=== PATIENT | female | born 1960 | race Two or more races ===

== ENCOUNTER 2017-02-06 17:01 | Emergency (ER) | payer MEDICAID, OTHER ==
[~2017-02-06] VITALS: Ht 165.1 cm; Wt 110.2 kg
[~2017-02-06 17:01] MED LIST: ASPIRIN EC81 MG PO; CIPRO500 MG PO; CLOPIDOGREL75 MG PO; FERROUS SULFAT325 MG ORAL; FERROUS SULFAT325 MG PO; GEMFIBROZIL600 MG ORAL; GLUCOPHAGE500 MG PO; IBUPROFEN600 MG ORAL; IBUPROFEN800 MG PO; LISINOPRIL-HCT1 EAC2 ORAL; METFORMIN HCL850 M1 ORAL; MYLANTA II30 ML GT; NITROFURANTOIN100 M2 ORAL; OMEPRAZOLE20 M3 ORAL; RANITIDINE HCL150 MG PO; ZESTRIL20 MG PO
[2017-02-06 17:35] VITALS: BP 150/88
[2017-02-06] MEDS ORDERED: TYLENOL EXTRA500 MG ORAL (17:44)
[2017-02-06] MEDS ORDERED: GABAPENTIN300 MG ORAL (17:44)
[2017-02-06 17:46] VITALS: BP 150/88
--- NOTE | 2017-02-06 20:42 | Emergency Room Report ---
History of Present Illness General Chief Complaint: Upper Extremity Injury Source: Medical Record Present Illness HPI The patient is a 56-year-old female with a history of diabetes and hypertension presenting for right neck pain and bilateral hand pain which began 2 months prior. Patient states this pain usually begins at night. The patient denies any prior injury to this area. Pain is described as an 8/10 dull ache and is localized to the R neck and bilateral 3rd-5th fingers. Pain does not radiate. The patient has not tried any pain medications. Pt denies other symptoms including N, V, F, MATHEW, CP, SOB, numbness/tingling Allergies: Coded Allergies: No Known Allergies (Unverified , 08/21/12) Patient History Past Medical History: see triage record, DM, HTN Pertinent Family History: none Reviewed Nursing Documentation: PMH: Agreed, PSxH: Agreed Nursing Documentation-PMH Hx Cardiac Problems: Yes Hx Hypertension: Yes Hx Asthma: No Hx Diabetes: Yes Hx Gastrointestinal Problems: Yes - Gall stones Review of Systems All Other Systems: negative except mentioned in HPI Physical Exam Vital Signs Date Time Temp Pulse Resp B/P Pulse Ox O2 Delivery O2 Flow Rate FiO2 02/06/17 17:15 98.2 93 16 150/88 97 Room Air Sp02 EP Interpretation: reviewed, normal General Appearance: no apparent distress, alert, GCS 15, non-toxic, obese Head: normocephalic, atraumatic Eyes: bilateral eye PERRL, bilateral eye normal inspection ENT: hearing grossly normal, normal pharynx, no angioedema, normal voice Neck: full range of motion, no bony tend, supple/symm/no masses, tender lateral - R side Respiratory: chest non-tender, lungs clear, normal breath sounds, no wheezing, speaking full sentences Cardiovascular #1: regular rate, rhythm, no edema Musculoskeletal: back normal, gait/station normal, normal range of motion Neurologic: alert, oriented x3, responsive, motor strength/tone normal, sensory intact, normal gait, speech normal Psychiatric: judgement/insight normal, memory normal, mood/affect normal, no suicidal/homicidal ideation Skin: normal color, no rash, warm/dry, well hydrated Lymphatic: no adenopathy Medical Decision Making PA Attestation Dr. Pichardo is my supervising physician. Patient management was discussed with my supervising physician Diagnostic Impression: Primary Impression: Arthritis Additional Impression: Neuropathy ER Course The patient is a 56-year-old female with a history of diabetes and hypertension presenting for right neck pain and bilateral hand pain which began 2 months prior Ddx considered include but not limited to sprain/strain, fracture, contusion, neuropathy PE: vitals WNL. NAD There is sinus to palpation over the right cervical paraspinous muscle. No midline tenderness. Full active range of motion. Upper ext: 5/5 strength. SILT. No discoloration. Skin warm and dry. Normal gait. No imaging is needed at this time. Pt is given gabapentin and tylenol and will be DC'ed home with ER precautions. Pt needs to FU with PMD. Last Vital Signs Date Time Temp Pulse Resp B/P Pulse Ox O2 Delivery O2 Flow Rate FiO2 02/06/17 17:49 98.3 02/06/17 17:46 16 150/88 97 Room Air 02/06/17 17:15 93 Status: improved Disposition: HOME, SELF-CARE Condition: Improved Scripts Gabapentin* (GABAPENTIN*) 300 Mg Capsule 300 MG ORAL THREE TIMES A DAY, #60 CAP 0 Refills Prov: SONU SKAGGS 02/06/17 Acetaminophen* (TYLENOL EXTRA STRENGTH*) 500 Mg Tablet 500 MG ORAL Q8H Y for Prn Headache/Temp > 101, #30 TAB 0 Refills Prov: SONU SKAGGS 02/06/17 Referrals: NON PHYSICIAN (PCP) Patient Instructions: Peripheral Neuropathy, Arthritis Additional Instructions: I discussed my findings with the patient. All questions and concerns have been answered. Treatment and medication compliance have been addressed. I advised the patient that they need to follow up with PMD in 3-5 days. Return to ED if symptoms worsen, new symptoms arise, or if needed for any reason. Patient verbalized understanding of discharge instructions. SONU SKAGGS Feb 06, 2017 20:42
== END 2017-02-06 18:00 | disposition home or self-care (01) ==
LOC: EMR 17:55
DX: M19.90 Unspecified osteoarthritis, unspecified site (principal); G62.9 Polyneuropathy, unspecified; I10 Essential (primary) hypertension; E11.9 Type 2 diabetes mellitus without complications
CPT/HCPCS: 99284

== ENCOUNTER 2017-03-23 10:21 | Emergency (ER) | payer MEDICAID ==
[~2017-03-23] VITALS: Ht 165.1 cm; Wt 115.7 kg
[~2017-03-23 10:21] MED LIST changes: +GABAPENTIN300 MG ORAL; +TYLENOL EXTRA500 MG ORAL
[2017-03-23 10:30] VITALS: BP 155/78
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
[2017-03-23] MEDS ORDERED: Tylenol #3 tab (300mg/30mg) ORAL ONE (10:45)
[2017-03-23] MEDS ORDERED: Ketorolac 60mg Inj IM ONE (10:45)
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
[2017-03-23] MEDS ORDERED: ROBAXIN-750750 MG PO (11:57)
[2017-03-23] MEDS ORDERED: TYLENOL325 MG ORAL (11:57)
[2017-03-23 12:12] VITALS: BP 117/84
== END 2017-03-23 12:16 | disposition home or self-care (01) ==
LOC: EMR 10:55
DX: S30.1XXA Contusion of abdominal wall, initial encounter (principal); V49.40XA Driver injured in collision with unspecified motor vehicles in traffic accident, initial encounter; Y92.410 Unspecified street and highway as the place of occurrence of the external cause; R51 Headache; I10 Essential (primary) hypertension; E11.9 Type 2 diabetes mellitus without complications
CPT/HCPCS: 70450; 71010; 96372; 99284

== ENCOUNTER 2018-08-07 10:44 | Emergency (ER) | payer MEDICAID ==
[~2018-08-07] VITALS: Ht 157.5 cm; Wt 112.0 kg
[~2018-08-07 10:44] MED LIST changes: +CEPHALEXIN500 MG ORAL; +ROBAXIN-750750 MG PO; +TYLENOL325 MG ORAL
[2018-08-07 10:55] VITALS: BP 156/78
[2018-08-07 11:21] LABS: BASOPHILS % (AUTO) 1.2 % (0.0-2.0); EOSINOPHILS % (AUTO) 1.2 % (0.0-3.0); HEMATOCRIT 44.7 % (37.0-47.0); LYMPHOCYTES % (AUTO) 26.8 % (20.0-45.0); MEAN CORPUSCULAR VOLUME 86 FL (80-99); MONOCYTES % (AUTO) 6.1 % (1.0-10.0); NEUTROPHILS % (AUTO) 64.7 % (45.0-75.0); PLATELET COUNT 180 K/UL (150-450); RED BLOOD COUNT 5.19 M/UL (4.20-5.40); RED CELL DISTRIBUTION WIDTH 11.4 % (11.6-14.8); WHITE BLOOD COUNT 8.5 K/UL (4.8-10.8)
[2018-08-07 11:22] LABS: APPEARANCE,URINE CLOUDY; BILIRUBIN, URINE 1+ (NEGATIVE); GLUCOSE, URINE (UA) NEGATIVE (NEGATIVE); KETONES,URINE 1+ (NEGATIVE); LEUKOCYTE ESTERASE ,URINE 3+ (NEGATIVE); NITRITE,URINE NEGATIVE (NEGATIVE); PH,URINE 6.5 (4.5-8.0); PROTEIN,URINE 2+ (NEGATIVE); UROBILINOGEN,URINE 4 MG/DL (0.0-1.0)
[2018-08-07 11:23] LABS: COLOR,URINE YELLOW
[2018-08-07 11:40] LABS: ANION GAP 6 mmol/L (5-15); BLOOD UREA NITROGEN 12 mg/dL (7-18); CALCIUM 9.1 MG/DL (8.5-10.1); CARBON DIOXIDE 28 MMOL/L (21-32); CHLORIDE 102 MMOL/L (98-107); CREATININE 0.7 MG/DL (0.55-1.30); POTASSIUM 4.5 MMOL/L (3.5-5.1); SODIUM 136 MMOL/L (136-145)
[2018-08-07 11:45] LABS: ALANINE AMINOTRANSFERASE 20 U/L (12-78); ALBUMIN 3.3 G/DL (3.4-5.0); ALBUMIN/GLOBULIN RATIO 0.7 (1.0-2.7); ALKALINE PHOSPHATASE 74 U/L (46-116); ASPARTATE AMINO TRANSFERASE 24 U/L (15-37); BILIRUBIN,TOTAL 0.5 MG/DL (0.2-1.0)
[2018-08-07] MEDS ORDERED: Isovue-300 100ml vial INJ PRN (11:45)
--- NOTE | 2018-08-07 12:55 | Diagnostic Imaging Report ---
Clinical Indication: Left upper quadrant abdominal pain x2 weeks Technique: No oral contrast utilized, per emergency room physician request IV administration nonionic contrast. Venous phase spiral acquisition obtained through the abdomen and pelvis. Multiplanar reconstructions were generated. Total dose length product 1114.36 mGycm. CTDIvol(s) 19.75 mGy. Dose reduction achieved using automated exposure control Comparison: 04/30/2018 Findings: Lack of enteric contrast limits assessment of the GI tract. The appendix is normal. There is colonic diverticulosis. No evidence of diverticulitis. No small bowel distention. Distal esophagus, stomach, duodenum are unremarkable. No free or loculated intraperitoneal gas or fluid is evident. There is again demonstrated broad-based diastasis of the rectus abdominis tendon. There is a small umbilical hernia again demonstrated which contains only fat. The liver demonstrates diffuse low attenuation, consistent with fatty change, also previously demonstrated. The gallbladder contains a large gallstone, also previously demonstrated. No gallbladder wall thickening or pericholecystic inflammation demonstrated. The bile ducts, pancreas, spleen, adrenals, kidneys are all unremarkable. No retroperitoneal or mesenteric mass or adenopathy. No pelvic mass or adenopathy. Uterus and ovaries appear unremarkable. The included lung bases demonstrate minimal scarring in the right azygos esophageal recess, unchanged. There are otherwise clear. The bones demonstrate bilateral L5 spondylolysis, grade 1-2 L5 on S1 spondylolisthesis, secondary degenerative change, stable since previous study. The bones are otherwise unremarkable. Impression: Limited assessment of the GI tract, due to lack of enteric contrast administration No definite acute abnormality. Cholelithiasis, also previously reported Fatty liver, also previously described Colonic diverticulosis. No evidence of diverticulitis Bilateral L5 spondylolysis, grade 1-2 L5 on S1 spondylolisthesis and secondary degenerative change, stable since previous exam Incidental findings of broad-based diastasis of the rectus abdominis tendon, small umbilical fat-containing hernia, minimal right pulmonary parenchymal scarring The CT scanner at [facility] is accredited by the [employer] and the scans are performed using protocols designed to limit radiation exposure to as low as reasonably achievable to attain images of sufficient resolution adequate for diagnostic evaluation.
[2018-08-07 14:04] VITALS: BP 156/78
--- NOTE | 2018-08-07 15:14 | Emergency Room Report ---
History of Present Illness General Chief Complaint: Abdominal Pain Source: Patient Present Illness HPI Patient states she has had left after abdominal pain for the past 6 months. She states that over the past 2 weeks her pain has become more severe and constant. She describes the pain is in her left mid abdomen. She has had nausea but denies vomiting. She denies fever or chills. She denies dysuria or hematuria. She has no other complaints. Allergies: Coded Allergies: No Known Allergies (Unverified , 08/21/12) Patient History Past Medical History: see triage record, DM, HTN Social History: Denies: smoking, alcohol use, drug use Now: No Reviewed Nursing Documentation: PMH: Agreed; PSxH: Agreed Nursing Documentation-PMH Past Medical History: No History, Except For Hx Cardiac Problems: Yes Hx Hypertension: Yes Hx Pacemaker: No Hx Asthma: No Hx COPD: No Hx Diabetes: Yes Hx Gastrointestinal Problems: Yes - Gall stones Hx Cerebrovascular Accident: No Hx Seizures: No Review of Systems All Other Systems: negative except mentioned in HPI Physical Exam Vital Signs Date Time Temp Pulse Resp B/P (MAP) Pulse Ox O2 Delivery O2 Flow Rate FiO2 08/07/18 10:50 97.4 87 16 156/78 98 Room Air 97.3 Sp02 EP Interpretation: reviewed, normal General Appearance: no apparent distress, alert, GCS 15, non-toxic, obese Head: normocephalic, atraumatic Eyes: bilateral eye normal inspection, bilateral eye PERRL ENT: hearing grossly normal, normal pharynx, no angioedema, normal voice Neck: full range of motion, supple/symm/no masses Respiratory: chest non-tender, lungs clear, normal breath sounds, speaking full sentences Cardiovascular #1: regular rate, rhythm, no edema Gastrointestinal: normal bowel sounds, soft, non-distended, no guarding, no rebound, tenderness - LUQ Rectal: deferred Musculoskeletal: back normal, gait/station normal, normal range of motion, non- tender Neurologic: alert, oriented x3, responsive, motor strength/tone normal, sensory intact, speech normal Psychiatric: judgement/insight normal, memory normal, mood/affect normal, no suicidal/homicidal ideation Skin: normal color, no rash, warm/dry, well hydrated Medical Decision Making Diagnostic Impression: Primary Impression: Biliary colic Additional Impression: Cholelithiasis ER Course This patient has a very large gallstone. This is in the gallbladder neck and is likely causing this patient biliary colic. She does not have a gallstone pancreatitis or evidence of biliary obstruction at this time. There is also no evidence of cholecystitis. However, she does have an enlarged gallbladder. I planned on admitting this patient for surgical cholecystectomy for concern that she could develop worsening pain and or cholecystitis. However, the patient refused admission to the hospital and left AGAINST MEDICAL ADVICE. It was explained multiple times that likely her condition will only worsen and she indicated understanding. Laboratory Tests Test 08/07/18 10:59 08/07/18 11:11 Urine Color Yellow Urine Appearance Cloudy Urine pH 6.5 (4.5-8.0) Urine Specific [place] 1.010 (1.005-1.035) Urine Protein 2+ (NEGATIVE) H Urine Glucose (UA) Negative (NEGATIVE) Urine Ketones 1+ (NEGATIVE) H Urine Blood Negative (NEGATIVE) Urine Nitrite Negative (NEGATIVE) Urine Bilirubin 1+ (NEGATIVE) H Urine Ictotest Negative (NEGATIVE) Urine Urobilinogen 4 MG/DL (0.0-1.0) H Urine Leukocyte Esterase 3+ (NEGATIVE) H Urine RBC 0-2 /HPF (0 - 2) Urine WBC 10-15 /HPF (0 - 2) H Urine Squamous Epithelial Cells Moderate /LPF (NONE/OCC) H Urine Bacteria Few /HPF (NONE) White Blood Count 8.5 K/UL (4.8-10.8) Red Blood Count 5.19 M/UL (4.20-5.40) Hemoglobin 15.0 G/DL (12.0-16.0) Hematocrit 44.7 % (37.0-47.0) Mean Corpuscular Volume 86 FL (80-99) Mean Corpuscular Hemoglobin 28.9 PG (27.0-31.0) Mean Corpuscular Hemoglobin Concent 33.6 G/DL (32.0-36.0) Red Cell Distribution Width 11.4 % (11.6-14.8) L Platelet Count 180 K/UL (150-450) Mean Platelet Volume 10.3 FL (6.5-10.1) H Neutrophils (%) (Auto) 64.7 % (45.0-75.0) Lymphocytes (%) (Auto) 26.8 % (20.0-45.0) Monocytes (%) (Auto) 6.1 % (1.0-10.0) Eosinophils (%) (Auto) 1.2 % (0.0-3.0) Basophils (%) (Auto) 1.2 % (0.0-2.0) Sodium Level 136 MMOL/L (136-145) Potassium Level 4.5 MMOL/L (3.5-5.1) Chloride Level 102 MMOL/L (98-107) Carbon Dioxide Level 28 MMOL/L (21-32) Anion Gap 6 mmol/L (5-15) Blood Urea Nitrogen 12 mg/dL (7-18) Creatinine 0.7 MG/DL (0.55-1.30) Estimate Glomerular Filtration Rate > 60 mL/min (>60) Glucose Level 175 MG/DL (74-106) H Calcium Level 9.1 MG/DL (8.5-10.1) Total Bilirubin 0.5 MG/DL (0.2-1.0) Aspartate Amino Transferase (AST) 24 U/L (15-37) Alanine Aminotransferase (ALT) 20 U/L (12-78) Alkaline Phosphatase 74 U/L (46-116) Total Protein 8.2 G/DL (6.4-8.2) Albumin 3.3 G/DL (3.4-5.0) L Globulin 4.9 g/dL Albumin/Globulin Ratio 0.7 (1.0-2.7) L Lipase 96 U/L (73-393) CT/MRI/US Diagnostic Results CT/MRI/US Diagnostic Results : Imaging Test Ordered: CT abd/pelvis, US abdomen Impression See official report in the electronic medical record. Large gallstone identified in the gallbladder neck. No other acute findings. Last Vital Signs Date Time Temp Pulse Resp B/P (MAP) Pulse Ox O2 Delivery O2 Flow Rate FiO2 08/07/18 14:04 97.3 86 16 156/78 98 Room Air 97.3 Disposition: AGAINST MEDICAL ADVICE Condition: Stable Referrals: NON PHYSICIAN (PCP) Kelly Gaviria DO Aug 07, 2018 15:13
[2018-08-07 15:16] VITALS: BP 156/78
--- NOTE | 2018-08-07 16:35 | Diagnostic Imaging Report ---
Indication: Abdominal pelvic pain, history of gallstone Technique: Morelos-scale and duplex images of the upper abdomen were obtained. Doppler images of the hepatic vessels Comparison: 08/21/2012, also CT scan of earlier the same day Findings: Gallbladder demonstrates a large gallstone, other smaller stones. Sonographic Ramírez's sign is negative. Common bile duct measures 3 mm in diameter. No intrahepatic biliary ductal dilatation. Liver demonstrates diffusely increased echogenicity, consistent with fatty change described on recent CT. It is somewhat enlarged. Portal vein and hepatic veins are patent. Pancreas is unremarkable. Spleen is unremarkable. Left kidney measures 12.2 cm in length. Right kidney measures 10.9 cm length. Both kidneys demonstrate normal echogenicity. There is no hydronephrosis. No focal abnormality . Abdominal aorta is partially obscured by bowel gas, visualized portions are non-aneurysmal . . Compared to the prior exam, spleen size is smaller. Previously demonstrated common bile duct dilatation is no longer evident. Impression: Cholelithiasis, also previously reported Fatty mildly enlarged liver, also previously reported Negative for dilated ducts. Previously demonstrated, duct dilatation is no longer evident Note nonvisualization of portions of the abdominal aorta
== END 2018-08-07 15:16 | disposition left against medical advice (07) ==
LOC: EMR 12:17 → 4E 14:00 → UNDOADMIN 14:00 → EDBEDREQ 14:33 → EMR 15:16 → CANBEDREQ 15:38
DX: K80.20 Calculus of gallbladder without cholecystitis without obstruction (principal); I10 Essential (primary) hypertension; E11.9 Type 2 diabetes mellitus without complications; K57.30 Diverticulosis of large intestine without perforation or abscess without bleeding; K76.0 Fatty (change of) liver, not elsewhere classified; M43.06 Spondylolysis, lumbar region; M43.17 Spondylolisthesis, lumbosacral region
CPT/HCPCS: 36415; 74177; 76700; 80053; 81003; 83690; 85025; 87086; 96360; 99284; Q9967

== ENCOUNTER 2018-09-06 19:12 | Emergency (ER) | payer MEDICAID ==
[~2018-09-06] VITALS: Ht 165.1 cm; Wt 111.6 kg
[2018-09-06 19:30] VITALS: BP 126/100
[2018-09-06] MEDS ORDERED: Aspirin Baby 81mg ORAL ONE (19:30)
[2018-09-06 20:20] LABS: BASOPHILS % (AUTO) 1.2 % (0.0-2.0); EOSINOPHILS % (AUTO) 1.5 % (0.0-3.0); HEMATOCRIT 42.1 % (37.0-47.0); HEMOGLOBIN 14.7 G/DL (12.0-16.0); LYMPHOCYTES % (AUTO) 29.1 % (20.0-45.0); MEAN CORPUSCULAR VOLUME 88 FL (80-99); MONOCYTES % (AUTO) 4.9 % (1.0-10.0); NEUTROPHILS % (AUTO) 63.2 % (45.0-75.0); PLATELET COUNT 199 K/UL (150-450); RED CELL DISTRIBUTION WIDTH 11.8 % (11.6-14.8); WHITE BLOOD COUNT 7.9 K/UL (4.8-10.8)
[2018-09-06 20:26] LABS: ANION GAP 6 mmol/L (5-15); BLOOD UREA NITROGEN 13 mg/dL (7-18); CALCIUM 8.9 MG/DL (8.5-10.1); CARBON DIOXIDE 29 MMOL/L (21-32); CHLORIDE 100 MMOL/L (98-107); CREATININE 0.9 MG/DL (0.55-1.30); SODIUM 135 MMOL/L (136-145)
[2018-09-06 20:27] LABS: APPEARANCE,URINE CLEAR; BILIRUBIN, URINE NEGATIVE (NEGATIVE); COLOR,URINE YELLOW; GLUCOSE, URINE (UA) 3+ (NEGATIVE); KETONES,URINE 1+ (NEGATIVE); LEUKOCYTE ESTERASE ,URINE 1+ (NEGATIVE); NITRITE,URINE NEGATIVE (NEGATIVE); PH,URINE 5 (4.5-8.0); PROTEIN,URINE 2+ (NEGATIVE); UROBILINOGEN,URINE 1 MG/DL (0.0-1.0)
[2018-09-06 20:40] LABS: ALANINE AMINOTRANSFERASE 18 U/L (12-78); ALBUMIN 3.2 G/DL (3.4-5.0); ALBUMIN/GLOBULIN RATIO 0.6 (1.0-2.7); ALKALINE PHOSPHATASE 75 U/L (46-116); ASPARTATE AMINO TRANSFERASE 13 U/L (15-37); BILIRUBIN,TOTAL 0.4 MG/DL (0.2-1.0); CKMB < 0.5 NG/ML (0.0-3.6); CREATINE KINASE 35 U/L (26-308)
--- NOTE | 2018-09-06 21:39 | Emergency Room Report ---
History of Present Illness General Chief Complaint: Chest Pain Source: Patient Present Illness HPI This patient states that for the past 2 days she has had chest pain. I saw this patient about a month ago for epigastric pain and she was found to have a very large gallstone. She left AGAINST MEDICAL ADVICE at that time because she did not want to have surgery to have her gallbladder removed. The patient states that her epigastric symptoms, and go. She states that this pain is different and is more in her mid chest. She states that the symptoms have been constant for the past 2 days. She denies recent illness. She denies fever or chills. She denies nausea or vomiting. She denies cough or congestion. She has no other complaints. Allergies: Coded Allergies: No Known Allergies (Unverified , 08/21/12) Patient History Past Medical History: see triage record, DM, HTN, other - cholelithiasis Social History: Denies: smoking, alcohol use, drug use Last Menstrual Period: 2014 Now: No : 11 Para: 10 Reviewed Nursing Documentation: PMH: Agreed; PSxH: Agreed Nursing Documentation-PMH Past Medical History: No History, Except For Hx Cardiac Problems: Yes - hyperlipidemia Hx Hypertension: Yes Hx Pacemaker: No Hx Asthma: No Hx COPD: No Hx Diabetes: Yes Hx Gastrointestinal Problems: Yes - Gall stones Hx Cerebrovascular Accident: No Hx Seizures: No Review of Systems All Other Systems: negative except mentioned in HPI Physical Exam Vital Signs Date Time Temp Pulse Resp B/P (MAP) Pulse Ox O2 Delivery O2 Flow Rate FiO2 09/06/18 19:14 98.8 92 16 142/79 93 Room Air 09/06/18 19:30 99 Sp02 EP Interpretation: reviewed, normal General Appearance: no apparent distress, alert, GCS 15, non-toxic Head: normocephalic, atraumatic Eyes: bilateral eye normal inspection, bilateral eye PERRL ENT: hearing grossly normal, normal pharynx, no angioedema, normal voice Neck: full range of motion, supple/symm/no masses Respiratory: chest non-tender, lungs clear, normal breath sounds, no respiratory distress, no retraction, no accessory muscle use, speaking full sentences Cardiovascular #1: regular rate, rhythm, no edema Gastrointestinal: normal bowel sounds, non tender, soft, non-distended, no guarding, no rebound Rectal: deferred Musculoskeletal: back normal, gait/station normal, normal range of motion Neurologic: alert, oriented x3, responsive, motor strength/tone normal, sensory intact, speech normal Psychiatric: judgement/insight normal, memory normal, mood/affect normal, no suicidal/homicidal ideation Skin: normal color, no rash, warm/dry, well hydrated Medical Decision Making Diagnostic Impression: Primary Impression: Chest pain Additional Impression: Cholelithiasis ER Course The patient is low risk chest pain. I considered PE, PTX, acute coronary syndrome, aortic dissection, pneumonia which is unlikely given hx, CE, CXR. Low risk PERC and Wells. Negative work-up to include Cardiac enzymes, CXR, EKG. Given history and PE I do not feel that this patient needs further evaluation at this time. The patient has known cholelithiasis and likely this is the etiology of the patient's symptoms. She continues to refuse admission to the hospital for cholecystectomy. There is no evidence of cholecystitis at this time or biliary obstruction. The patient was instructed to follow-up closely with their PCP and close return precautions were given. Laboratory Tests Test 09/06/18 19:54 09/06/18 19:57 Urine Color Yellow Urine Appearance Clear Urine pH 5 (4.5-8.0) Urine Specific [place] 1.025 (1.005-1.035) Urine Protein 2+ (NEGATIVE) H Urine Glucose (UA) 3+ (NEGATIVE) H Urine Ketones 1+ (NEGATIVE) H Urine Blood Negative (NEGATIVE) Urine Nitrite Negative (NEGATIVE) Urine Bilirubin Negative (NEGATIVE) Urine Urobilinogen 1 MG/DL (0.0-1.0) H Urine Leukocyte Esterase 1+ (NEGATIVE) H Urine RBC 0-2 /HPF (0 - 2) Urine WBC 0-2 /HPF (0 - 2) Urine Squamous Epithelial Cells Moderate /LPF (NONE/OCC) H Urine Calcium Oxalate Crystals Few /LPF (NONE) Urine Bacteria Few /HPF (NONE) Urine Opiates Screen Negative (NEGATIVE) Urine Barbiturates Screen Negative (NEGATIVE) Phencyclidine (PCP) Screen Negative (NEGATIVE) Urine Amphetamines Screen Negative (NEGATIVE) Urine Benzodiazepines Screen Negative (NEGATIVE) Urine Cocaine Screen Negative (NEGATIVE) Urine Marijuana (THC) Screen Negative (NEGATIVE) White Blood Count 7.9 K/UL (4.8-10.8) Red Blood Count 4.80 M/UL (4.20-5.40) Hemoglobin 14.7 G/DL (12.0-16.0) Hematocrit 42.1 % (37.0-47.0) Mean Corpuscular Volume 88 FL (80-99) Mean Corpuscular Hemoglobin 30.5 PG (27.0-31.0) Mean Corpuscular Hemoglobin Concent 34.8 G/DL (32.0-36.0) Red Cell Distribution Width 11.8 % (11.6-14.8) Platelet Count 199 K/UL (150-450) Mean Platelet Volume 9.3 FL (6.5-10.1) Neutrophils (%) (Auto) 63.2 % (45.0-75.0) Lymphocytes (%) (Auto) 29.1 % (20.0-45.0) Monocytes (%) (Auto) 4.9 % (1.0-10.0) Eosinophils (%) (Auto) 1.5 % (0.0-3.0) Basophils (%) (Auto) 1.2 % (0.0-2.0) Sodium Level 135 MMOL/L (136-145) L Potassium Level 4.0 MMOL/L (3.5-5.1) Chloride Level 100 MMOL/L (98-107) Carbon Dioxide Level 29 MMOL/L (21-32) Anion Gap 6 mmol/L (5-15) Blood Urea Nitrogen 13 mg/dL (7-18) Creatinine 0.9 MG/DL (0.55-1.30) Estimate Glomerular Filtration Rate > 60 mL/min (>60) Glucose Level 264 MG/DL (74-106) H Calcium Level 8.9 MG/DL (8.5-10.1) Total Bilirubin 0.4 MG/DL (0.2-1.0) Aspartate Amino Transferase (AST) 13 U/L (15-37) L Alanine Aminotransferase (ALT) 18 U/L (12-78) Alkaline Phosphatase 75 U/L (46-116) Total Creatine Kinase 35 U/L (26-308) Creatine Kinase MB < 0.5 NG/ML (0.0-3.6) Creatine Kinase MB Relative Index 1.4 Troponin I 0.000 ng/mL (0.000-0.056) Total Protein 8.4 G/DL (6.4-8.2) H Albumin 3.2 G/DL (3.4-5.0) L Globulin 5.2 g/dL Albumin/Globulin Ratio 0.6 (1.0-2.7) L EKG Diagnostic Results Rate: normal Rhythm: NSR ST Segments: no acute changes Other Impression NSST Rhythm Strip Diag. Results EP Interpretation: yes Rate: 80's Rhythm: NSR, no PVC's, no ectopy Chest X-Ray Diagnostic Results Chest X-Ray Diagnostic Results : Chest X-Ray Ordered: Yes # of Views/Limited/Complete: 1 View Indication: Chest Pain Interpretation: no consolidation, no effusion, no pneumothorax, no acute cardiopulmonary disease Impression: No acute disease Electronically Signed by: Lyn CT/MRI/US Diagnostic Results CT/MRI/US Diagnostic Results : Imaging Test Ordered: US RUQ Impression Cholelithiasis unchanged from previous study. No other acute findings. See official report. Last Vital Signs Date Time Temp Pulse Resp B/P (MAP) Pulse Ox O2 Delivery O2 Flow Rate FiO2 09/06/18 19:30 98.1 78 18 126/100 99 Room Air 09/06/18 19:30 99 Status: improved Disposition: HOME, SELF-CARE Condition: Improved Referrals: [facility],REFERRING (PCP) Patient Instructions: Cholelithiasis, [id number], Nonspecific Chest Pain Kelly Gaviria DO Sep 06, 2018 21:39
[2018-09-06 22:06] VITALS: BP 119/83
--- NOTE | 2018-09-07 10:43 | Diagnostic Imaging Report ---
Indication:Abdominal pain Technique: Grayscale and duplex Doppler imaging of the abdomen performed. Comparison: None Findings: The liver is echogenic consistent with fatty infiltration. CBD is 3 mm. The gallbladder demonstrates the area of the posterior shadowing consistent with stones. The demonstrated part of the pancreas, aorta and IVC show no abnormalities. Both kidneys appear unremarkable. The spleen is normal in size. There is no biliary ductal dilatation identified. Doppler evaluation of the main portal vein shows patency. There is no ascites. No hydronephrosis seen. Impression: Fatty liver. Gallstones
--- NOTE | 2018-09-07 10:59 | Diagnostic Imaging Report ---
Indication: Chest pain Comparison: 03/23/2017 A single view chest radiograph was obtained. Findings: Heart size and bronchovascular markings accentuated by low lung volumes. The bones are unremarkable. IMPRESSION: No acute disease suspected accounting for differences in lung volume
--- NOTE | 2018-09-08 15:04 | Cardiology Report ---
APPROVED REPORT EKG Measurement Heart [id number] Normal sinus rhythm Low voltage QRS Left anterior fascicular block Nonspecific ST abnormality Prolonged QT Abnormal ECG
== END 2018-09-06 22:06 | disposition home or self-care (01) ==
LOC: EMR 21:00
DX: R07.9 Chest pain, unspecified (principal); K80.20 Calculus of gallbladder without cholecystitis without obstruction; E11.9 Type 2 diabetes mellitus without complications; E78.5 Hyperlipidemia, unspecified; I10 Essential (primary) hypertension
CPT/HCPCS: 36415; 71045; 76700; 80053; 80307; 81003; 82550; 82553; 84484; 85025; 93005; 96360; 99284

== ENCOUNTER 2018-10-30 15:47 | Emergency (ER) | payer MEDICAID ==
[~2018-10-30] VITALS: Ht 157.5 cm; Wt 110.2 kg
[2018-10-30 16:02] VITALS: BP 159/78
[2018-10-30] MEDS ORDERED: GLIPIZIDE5 MG ORAL (16:13)
[2018-10-30] MEDS ORDERED: ATORVASTATIN CA40 MG ORAL (16:13)
[2018-10-30] MEDS ORDERED: MAGNESIUM CITR296 M1 PO (17:31)
[2018-10-30] MEDS ORDERED: COLACE100 MG ORAL (17:31)
[2018-10-30 17:44] VITALS: BP 148/80
--- NOTE | 2018-10-31 11:38 | Diagnostic Imaging Report ---
Indication: Abdominal pain Technique: XRAY Abdomen 1v Comparison: Prior abdominal ultrasound and CT of the abdomen and pelvis dated 09/06/2018 and 08/07/2018 respectively Findings: Prominent colonic stool is noted. No abnormal dilatation of large or small bowel loops. No differential air-fluid levels. No evidence to suggest free intraperitoneal air. There are calcifications in the right upper quadrant suggestive of cholelithiasis. No acute osseous abnormality. Multiple pelvic phleboliths noted. Imaged lung bases grossly clear. No radiopaque foreign body. Impression: * Prominent colonic stool burden suggestive of constipation. Correlate clinically. * No radiographic evidence to suggest small bowel obstruction. * Findings suggestive of cholelithiasis.
== END 2018-10-30 17:44 | disposition home or self-care (01) ==
LOC: EMR 16:50
DX: R10.9 Unspecified abdominal pain (principal); R11.0 Nausea; K59.00 Constipation, unspecified
CPT/HCPCS: 74018; 99283

== ENCOUNTER 2019-02-28 12:06 | Inpatient (IN) | payer MEDICAID ==
[~2019-02-28] VITALS: Ht 162.6 cm; Wt 109.8 kg
[~2019-02-28 12:06] MED LIST changes: +ATORVASTATIN CA40 MG ORAL; +COLACE100 MG ORAL; +GLIPIZIDE5 MG ORAL; +MAGNESIUM CITR296 M1 PO
--- NOTE | 2019-02-28 12:30 | NUR ---
ED Nurse Note: pt reports left eye blurriness with headache, reports pt hasn't been taking blood pressure medication for three days ever since headache. will cont monitor.
--- NOTE | 2019-02-28 12:30 | NUR ---
ED Nurse Note: pt walked in c/o headache and left arm pain w/ tingling sensation and weakness for couple of days, pt reports she sometimes get chest pain with sob but denies at this time, reports she has been under a lot of stress, denies n/v/d at this time. AA&ox4, gcs=15, no dysphagia, no facial drooping nor weakness noted at this time, pt ambulates w/ steady gait, resp even and unlabored on RA. Noted BS 236, ERMD notified. vss, NSR on director of cardiac rehabilitation, will cont monitor.
--- NOTE | 2019-02-28 12:55 | NUR ---
ED Nurse Note: fall precaution and aspiration precaution started per ERMD order.
--- NOTE | 2019-02-28 12:58 | Emergency Room Report ---
History of Present Illness General Chief Complaint: Pain Source: Patient Present Illness HPI 58-year-old female with history of high cholesterol and hypertension presents with three-day history of left-sided headache, left upper arm pain, and sensation that her entire left side of her body is been weak. She denies any numbness, tingling, slurred speech, blurred vision, but she does report left- sided toothache as well. Allergies: Coded Allergies: No Known Allergies (Unverified , 08/21/12) Patient History Past Medical History: see triage record Reviewed Nursing Documentation: PMH: Agreed; PSxH: Agreed Nursing Documentation-PMH Hx Hypertension: Yes Hx Pacemaker: No Hx Asthma: No Hx COPD: No Hx Diabetes: Yes Hx Gastrointestinal Problems: Yes - Gall stones Hx Cerebrovascular Accident: No Hx Seizures: No Review of Systems All Other Systems: negative except mentioned in HPI Physical Exam Vital Signs Date Time Temp Pulse Resp B/P (MAP) Pulse Ox O2 Delivery O2 Flow Rate FiO2 02/28/19 12:11 98.4 85 18 181/89 94 Room Air Sp02 EP Interpretation: reviewed, normal General Appearance: no apparent distress, alert, non-toxic Head: normocephalic Eyes: bilateral eye normal inspection, bilateral eye PERRL, bilateral eye EOMI ENT: normal ENT inspection, hearing grossly normal, normal pharynx, no angioedema, normal voice, moist mucus membranes, other - Dental caries notable to left mandibular molars Neck: normal inspection, full range of motion, supple, supple/symm/no masses Respiratory: chest non-tender, lungs clear, normal breath sounds, chest symmetrical, palpation of chest normal Cardiovascular #1: normal peripheral pulses, regular rate, rhythm Cardiovascular #2: 2+ radial (R), 2+ radial (L) Gastrointestinal: normal inspection, non tender, soft, no mass, no guarding, no rebound Rectal: deferred Genitourinary: normal inspection, no CVA tenderness Musculoskeletal: back normal, gait/station normal, normal range of motion, non- tender, no calf tenderness Neurologic: alert, oriented x3, responsive, snow remover III-XII nml as tested, motor strength/tone normal, sensory intact, cerebellar normal, speech normal, other Psychiatric: judgement/insight normal, memory normal, mood/affect normal, no suicidal/homicidal ideation Skin: normal color, no rash, warm/dry, normal turgor Lymphatic: no adenopathy Medical Decision Making Diagnostic Impression: Primary Impression: TIA (transient ischemic attack) ER Course Patient with normal neuro exam, exam findings only concerning for dental Nicol, but stroke scale is 0, patient saying she feels weak on the left side, she has hypertension, high cholesterol, obesity, will admit for possible TIA EKG Diagnostic Results EKG Time: 13:06 EP Interpretation: no stemi Rate: normal Rhythm: NSR ST Segments: no acute changes ASA given to the pt in ED: Yes Rhythm Strip Diag. Results Rhythm Strip Time: 14:06 EP Interpretation: yes Rate: 75 Rhythm: NSR, no PVC's, no ectopy Chest X-Ray Diagnostic Results Chest X-Ray Diagnostic Results : Chest X-Ray Ordered: Yes # of Views/Limited/Complete: 1 View Indication: Other - LUE pain EP Interpretation: Yes Interpretation: no consolidation, no effusion, no pneumothorax, no acute cardiopulmonary disease Impression: No acute disease Electronically Signed by: Alberta Hanson MD CT/MRI/US Diagnostic Results CT/MRI/US Diagnostic Results : Imaging Test Ordered: ct head Impression no acute dz Last Vital Signs Date Time Temp Pulse Resp B/P (MAP) Pulse Ox O2 Delivery O2 Flow Rate FiO2 02/28/19 12:11 98.4 85 18 181/89 94 Room Air ALBERTA HANSON M.D Feb 28, 2019 12:58
[2019-02-28] MEDS ORDERED: Tylenol #3 tab (300mg/30mg) ORAL ONE (13:00)
[2019-02-28 13:07] VITALS: BP 153/89
[2019-02-28 13:28] LABS: BASOPHILS % (AUTO) 0.9 % (0.0-2.0); EOSINOPHILS % (AUTO) 1.2 % (0.0-3.0); HEMATOCRIT 42.4 % (37.0-47.0); HEMOGLOBIN 14.5 G/DL (12.0-16.0); LYMPHOCYTES % (AUTO) 25.2 % (20.0-45.0); MEAN CORPUSCULAR VOLUME 87 FL (80-99); MONOCYTES % (AUTO) 5.3 % (1.0-10.0); NEUTROPHILS % (AUTO) 67.4 % (45.0-75.0); PLATELET COUNT 180 K/UL (150-450); RED BLOOD COUNT 4.91 M/UL (4.20-5.40); RED CELL DISTRIBUTION WIDTH 11.9 % (11.6-14.8); WHITE BLOOD COUNT 7.9 K/UL (4.8-10.8)
--- NOTE | 2019-02-28 13:33 | Diagnostic Imaging Report ---
Indications: Left-sided headache, left upper arm pain Technique: Spiral acquisitions obtained through the brain. Angled axial and coronal 5 x 5 mm slices were reconstructed. Total dose length product 1312.59 mGycm. CTDI vol(s) 70.38 mGy. Dose reduction achieved using automated exposure control Comparison: 03/23/2017 Findings: Parenchymal calcifications are seen in the right convexity and left basal ganglia. No acute intercranial hemorrhage nor edema, mass effect, nor midline shift. Normal ceja-white differentiation. Normal-sized ventricles and extra axial CSF spaces. Visualized orbits and sinuses are unremarkable. The mastoids are clear. The calvarium is intact. 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
--- NOTE | 2019-02-28 13:40 | NUR ---
ED Nurse Note: pt resting at this time, family at the bedside, vss, resp even and unlabored on RA, NSR on graphic user interface designer, pt advised to notify staff if needed assist. will cont monitor.
[2019-02-28 13:47] LABS: ANION GAP 9 mmol/L (5-15); BLOOD UREA NITROGEN 11 mg/dL (7-18); CALCIUM 8.7 MG/DL (8.5-10.1); CARBON DIOXIDE 27 MMOL/L (21-32); CHLORIDE 101 MMOL/L (98-107); CREATININE 0.7 MG/DL (0.55-1.30); POTASSIUM 3.9 MMOL/L (3.5-5.1); SODIUM 137 MMOL/L (136-145)
[2019-02-28 13:50] LABS: ALANINE AMINOTRANSFERASE 22 U/L (12-78); ALBUMIN 3.2 G/DL (3.4-5.0); ALBUMIN/GLOBULIN RATIO 0.7 (1.0-2.7); ALKALINE PHOSPHATASE 74 U/L (46-116); ASPARTATE AMINO TRANSFERASE 15 U/L (15-37); BILIRUBIN,TOTAL 0.5 MG/DL (0.2-1.0); CHOLESTEROL 198 MG/DL (< 200); HDL CHOLESTEROL 39 MG/DL (40-60); TRIGLYCERIDES 191 MG/DL (30-150)
[2019-02-28 14:07] VITALS: BP 141/87
--- NOTE | 2019-02-28 14:09 | Diagnostic Imaging Report ---
Indication: Chest pain Technique: One view of the chest Comparison: 09/06/2018 Findings: Body habitus limits evaluation. Lungs and pleural spaces are clear. Heart size is upper limits of normal. No significant change Impression: No acute process
--- NOTE | 2019-02-28 14:54 | NUR ---
ED Nurse Note: report given to GIACOMO Bella from tele, room currently unavailable at this time.
--- NOTE | 2019-02-28 15:10 | NUR ---
ED Nurse Note: NO BED IN THE ROOM PER YARIEL FROM TELE, WILL SEND PT IN 10 MIN.
--- NOTE | 2019-02-28 15:39 | NUR ---
ED Nurse Note: PT TRANSFERRED TO TELE, ALL BELONGINGS SENT W/ PT. VSS, RESP EVEN AND UNLABORED ON RA. NO CHANGES IN NEURO.
[2019-02-28] MEDS ORDERED: Mylanta II UD 30ml ORAL PRN (15:40)
[2019-02-28] MEDS ORDERED: Albuterol/Ipratropium 3ml neb HHN PRN (15:45)
[2019-02-28] MEDS ORDERED: Nitroglycerin Subl 0.4mg tab SL PRN (15:45)
[2019-02-28] MEDS ORDERED: Miralax 17gm pkt ORAL PRN (15:45)
[2019-02-28] MEDS ORDERED: Promethazine/Codeine 5ml UD ORAL PRN (15:45)
[2019-02-28] MEDS ORDERED: Morphine Sulfate 2mg/ml Inj(IV/IM USE ONLY) IVP PRN (15:45)
[2019-02-28] MEDS ORDERED: LORazepam Inj 2mg/ml 1ml IV PRN (15:45)
[2019-02-28] MEDS: D5 1/2NS 1,000 ML IV SCH (17:35)
--- NOTE | 2019-02-28 18:22 | Consultation ---
History of Present Illness General Date patient seen: Feb 28, 2019 Chief Complaint: Left Sided Weakness Referring physician: Dr. Farley Present Illness Allergies: Coded Allergies: No Known Allergies (Unverified , 08/21/12) Medication History Scheduled Al Hydroxide/mg Hydroxide (Mag-Al Plus Suspension), 30 ML GT AC Aspirin Ec* (Aspirin Ec*), 81 MG PO DAILY, (Reported) Atorvastatin Calcium* (Atorvastatin Calcium*), 40 MG ORAL BEDTIME, (Reported) Cephalexin* (Keflex*), 500 MG ORAL EVERY 6 HOURS Ciprofloxacin* (Cipro*), 500 MG PO BID Clopidogrel* (Clopidogrel*), 75 MG PO DAILY, (Reported) Docusate Sodium* (Colace*), 100 MG ORAL THREE TIMES A DAY Ferrous Sulfate* (Ferrous Sulfate*), 325 MG PO DAILY, (Reported) Ferrous Sulfate* (Ferrous Sulfate*), 325 MG ORAL BID, (Reported) Gabapentin* (Gabapentin*), 300 MG ORAL THREE TIMES A DAY Gemfibrozil (Gemfibrozil*), 600 MG ORAL BID, (Reported) Glipizide* (Glipizide*), 5 MG ORAL BIDAC, (Reported) Ibuprofen* (Motrin*), 800 MG PO TID, (Reported) Ibuprofen* (Motrin*), 600 MG ORAL THREE TIMES A DAY Lisinopril* (Zestril*), 20 MG PO DAILY, (Reported) Lisinopril/Hydrochlorothiazide 20-25 Mg Tab (Lisinopril-Hctz 20-25 Mg Tab), 1 TAB ORAL DAILY, (Reported) Magnesium Citrate (Magnesium Citrate), 150 ML PO DAILY Metformin Hcl* (Glucophage*), 1,000 MG PO BID, (Reported) Metformin Hcl* (Metformin Hcl*), 850 MG ORAL BIDAC, (Reported) Methocarbamol* (Robaxin-750*), 750 MG PO TID Nitrofurantoin Monohyd/M-Cryst* (Macrobid 100 Mg*), 100 MG ORAL EVERY 12 HOURS Omeprazole (Omeprazole), 20 MG ORAL DAILY, (Reported) Ranitidine Hcl* (Zantac*), 150 MG PO BID Scheduled PRN Acetaminophen (Tylenol), 650 MG ORAL Q8HR PRN for Prn Pain/Headache/Temp > 101 Acetaminophen* (Tylenol Extra Strength*), 500 MG ORAL Q8H PRN for Prn Headache/ Temp > 101 Ibuprofen* (Motrin*), 600 MG ORAL Q8H PRN for For Pain Patient History Healthcare decision maker Resuscitation status Advanced Directive on File Physical Exam General Appearance: WD/WN, no apparent distress, alert Lines, tubes and drains: peripheral HEENT: normocephalic, atraumatic, anicteric, mucous membranes moist, PERRL, EOMI, pharynx normal, supple Neck: non-tender, normal alignment, supple, normal inspection Cardiovascular/Chest: normal peripheral pulses Extremities: normal range of motion, non-tender, normal inspection, no calf tenderness, normal capillary refill, non-pitting Skin Exam: normal pigmentation, warm/dry Neurologic: shipping processor II-XII grossly normal, no motor/sensory deficits, alert, oriented x 3, responsive, normal mood/affect, no Babinski Last 24 Hour Vital Signs Date Time Temp Pulse Resp B/P (MAP) Pulse Ox O2 Delivery O2 Flow Rate FiO2 02/28/19 15:37 98.9 81 16 120/71 96 Room Air 02/28/19 14:43 98.4 02/28/19 14:07 98.4 89 16 141/87 98 Room Air 02/28/19 13:09 81 16 Room Air 02/28/19 13:07 98.4 89 18 153/89 98 Room Air 02/28/19 12:11 98.4 85 18 181/89 94 Room Air Laboratory Tests Test 02/28/19 12:36 White Blood Count 7.9 K/UL (4.8-10.8) Red Blood Count 4.91 M/UL (4.20-5.40) Hemoglobin 14.5 G/DL (12.0-16.0) Hematocrit 42.4 % (37.0-47.0) Mean Corpuscular Volume 87 FL (80-99) Mean Corpuscular Hemoglobin 29.6 PG (27.0-31.0) Mean Corpuscular Hemoglobin Concent 34.2 G/DL (32.0-36.0) Red Cell Distribution Width 11.9 % (11.6-14.8) Platelet Count 180 K/UL (150-450) Mean Platelet Volume 10.9 FL (6.5-10.1) H Neutrophils (%) (Auto) 67.4 % (45.0-75.0) Lymphocytes (%) (Auto) 25.2 % (20.0-45.0) Monocytes (%) (Auto) 5.3 % (1.0-10.0) Eosinophils (%) (Auto) 1.2 % (0.0-3.0) Basophils (%) (Auto) 0.9 % (0.0-2.0) Prothrombin Time 10.5 SEC (9.30-11.50) Prothromb Time International Ratio 1.0 (0.9-1.1) Activated Partial Thromboplast Time 28 SEC (23-33) Sodium Level 137 MMOL/L (136-145) Potassium Level 3.9 MMOL/L (3.5-5.1) Chloride Level 101 MMOL/L (98-107) Carbon Dioxide Level 27 MMOL/L (21-32) Anion Gap 9 mmol/L (5-15) Blood Urea Nitrogen 11 mg/dL (7-18) Creatinine 0.7 MG/DL (0.55-1.30) Estimat Glomerular Filtration Rate > 60 mL/min (>60) Glucose Level 225 MG/DL (74-106) H Calcium Level 8.7 MG/DL (8.5-10.1) Total Bilirubin 0.5 MG/DL (0.2-1.0) Aspartate Amino Transf (AST/SGOT) 15 U/L (15-37) Alanine Aminotransferase (ALT/SGPT) 22 U/L (12-78) Alkaline Phosphatase 74 U/L (46-116) Troponin I 0.000 ng/mL (0.000-0.056) Total Protein 8.1 G/DL (6.4-8.2) Albumin 3.2 G/DL (3.4-5.0) L Globulin 4.9 g/dL Albumin/Globulin Ratio 0.7 (1.0-2.7) L Triglycerides Level 191 MG/DL (30-150) H Cholesterol Level 198 MG/DL (< 200) LDL Cholesterol 132 mg/dL (<100) H HDL Cholesterol 39 MG/DL (40-60) L Cholesterol/HDL Ratio 5.1 (3.3-4.4) H Height (Feet): 5 Height (Inches): 5.00 Weight (Pounds): 247 Medications Current Medications Medications (Trade) Dose Ordered Sig/Andrew Route PRN Reason Start Time Stop Time Status Last Admin Dose Admin Acetaminophen (Tylenol) 650 mg Q4H PRN ORAL fever 02/28/19 15:45 03/30/19 15:44 Al Hydroxide/Mg Hydroxide (Mylanta II) 30 ml Q6H PRN ORAL dyspepsia 02/28/19 15:40 03/30/19 15:39 Albuterol/ Ipratropium (Albuterol/ Ipratropium) 3 ml Q4H PRN HHN Shortness of Breath 02/28/19 15:45 03/05/19 15:44 Aspirin (Ecotrin) 81 mg DAILY ORAL 03/01/19 09:00 03/31/19 08:59 Atorvastatin Calcium (Lipitor) 40 mg BEDTIME ORAL 02/28/19 21:00 03/30/19 20:59 Clonidine HCl (Catapres Tab) 0.1 mg Q4H PRN ORAL For High Blood Pressure 02/28/19 15:45 03/30/19 15:44 Clopidogrel Bisulfate (Plavix) 75 mg DAILY ORAL 03/01/19 09:00 03/31/19 08:59 Dextrose (Dextrose 50%) 25 ml Q30M PRN IV Hypoglycemia 02/28/19 15:45 03/30/19 15:44 Dextrose (Dextrose 50%) 50 ml Q30M PRN IV Hypoglycemia 02/28/19 15:45 03/30/19 15:44 Dextrose/Sodium Chloride 1,000 ml @ 50 mls/hr Q20H IV 02/28/19 15:39 03/30/19 15:38 02/28/19 17:35 Gabapentin (Neurontin) 300 mg THREE TIMES A DAY ORAL 02/28/19 18:00 03/30/19 17:59 Heparin Sodium (Porcine) (Heparin 5000 units/ml) 5,000 units EVERY 12 HOURS SUBQ 02/28/19 21:00 03/30/19 20:59 Lorazepam (Ativan 2mg/ml 1ml) 0.5 mg Q4H PRN IV For Anxiety 02/28/19 15:45 03/07/19 15:44 Morphine Sulfate (Morphine Sulfate) 1 mg Q4H PRN IVP For Pain 7-10 02/28/19 15:45 03/07/19 15:44 Nitroglycerin (Ntg) 0.4 mg Q5M X 3 DOSES PRN SL Prn Chest Pain 02/28/19 15:45 03/30/19 15:44 Ondansetron HCl (Zofran) 4 mg Q6H PRN IVP Nausea & Vomiting 02/28/19 15:45 03/30/19 15:44 Polyethylene Glycol (Miralax) 17 gm HSPRN PRN ORAL Constipation 02/28/19 15:45 03/30/19 15:44 Promethazine HCl/ Codeine (Phenergan with Codeine) 5 ml Q4H PRN ORAL For Cough 02/28/19 15:45 03/30/19 15:44 Temazepam (Restoril) 15 mg HSPRN PRN ORAL Insomnia 02/28/19 15:45 03/07/19 15:44 Assessment/Plan Problem List: (1) Arthritis ICD Codes: M19.90 - Unspecified osteoarthritis, unspecified site SNOMED: 5572419 (2) Neuropathy ICD Codes: G62.9 - Polyneuropathy, unspecified SNOMED: 874914384 (3) Abdominal pain ICD Codes: R10.9 - Unspecified abdominal pain SNOMED: 08430021 (4) Dental infection ICD Codes: K04.7 - Periapical abscess without sinus SNOMED: 275146348 (5) UTI (urinary tract infection) ICD Codes: N39.0 - Urinary tract infection, site not specified SNOMED: 46204031 (6) Diabetes mellitus ICD Codes: E11.9 - Type 2 diabetes mellitus without complications SNOMED: 30867560 (7) CVA (cerebral vascular accident) Assessment & Plan: No residual symptoms at time of exam. Patient denies choking or coughing while eating No facial asymmetry at time of exam - normal smile, eyebrow raise, cheek puff and midline tongue No dysarthria or focal weakness No evidence of dysmetria or ataxia Redemonstration of old infarct symptoms likely in the setting of current uncontrolled hyperglycemia ICD Codes: I63.9 - Cerebral infarction, unspecified SNOMED: 852231458 (8) HTN (hypertension) ICD Codes: I10 - Essential (primary) hypertension SNOMED: 13419735 (9) Non-compliance Assessment & Plan: HgBA1c 9.2 now with ongoing elevated glucose Noncompliance with diabetic meds at home ICD Codes: Z91.19 - Patient's noncompliance with other medical treatment and regimen SNOMED: 5839018 (10) Acute encephalopathy Assessment & Plan: Redemonstration of old infarct symptoms likely in the setting of current uncontrolled hyperglycemia ICD Codes: G93.40 - Encephalopathy, unspecified SNOMED: 11398297, 718998627 Status: stable Assessment/Plan: CT without findings of old infarct rather possible evidence of neurocysticercosis. MRI Brain w/wo contrast to rule out TIA and neurocysticercosis Q 4 Hour Neuro Obs Swallow eval ordered by ED Maintain normoglycemia with ISS SBP< 140 IV Hydration Start Atorvastatin 80mg No evidence of aspiration on CXR and no facial weakness/ tongue deviation or symptoms on eval - ST not necessary PT/OT eval Ch ASA 81mg Mala Merrill N.P. Feb 28, 2019 18:22
--- NOTE | 2019-02-28 18:39 | Cardiology Progress Note ---
Assessment/Plan Assessment/Plan full note to follow Objective Last 24 Hour Vital Signs Date Time Temp Pulse Resp B/P (MAP) Pulse Ox O2 Delivery O2 Flow Rate FiO2 02/28/19 15:37 98.9 81 16 120/71 96 Room Air 02/28/19 14:43 98.4 02/28/19 14:07 98.4 89 16 141/87 98 Room Air 02/28/19 13:09 81 16 Room Air 02/28/19 13:07 98.4 89 18 153/89 98 Room Air 02/28/19 12:11 98.4 85 18 181/89 94 Room Air Laboratory Tests Test 02/28/19 12:36 White Blood Count 7.9 K/UL (4.8-10.8) Red Blood Count 4.91 M/UL (4.20-5.40) Hemoglobin 14.5 G/DL (12.0-16.0) Hematocrit 42.4 % (37.0-47.0) Mean Corpuscular Volume 87 FL (80-99) Mean Corpuscular Hemoglobin 29.6 PG (27.0-31.0) Mean Corpuscular Hemoglobin Concent 34.2 G/DL (32.0-36.0) Red Cell Distribution Width 11.9 % (11.6-14.8) Platelet Count 180 K/UL (150-450) Mean Platelet Volume 10.9 FL (6.5-10.1) H Neutrophils (%) (Auto) 67.4 % (45.0-75.0) Lymphocytes (%) (Auto) 25.2 % (20.0-45.0) Monocytes (%) (Auto) 5.3 % (1.0-10.0) Eosinophils (%) (Auto) 1.2 % (0.0-3.0) Basophils (%) (Auto) 0.9 % (0.0-2.0) Prothrombin Time 10.5 SEC (9.30-11.50) Prothromb Time International Ratio 1.0 (0.9-1.1) Activated Partial Thromboplast Time 28 SEC (23-33) Sodium Level 137 MMOL/L (136-145) Potassium Level 3.9 MMOL/L (3.5-5.1) Chloride Level 101 MMOL/L (98-107) Carbon Dioxide Level 27 MMOL/L (21-32) Anion Gap 9 mmol/L (5-15) Blood Urea Nitrogen 11 mg/dL (7-18) Creatinine 0.7 MG/DL (0.55-1.30) Estimat Glomerular Filtration Rate > 60 mL/min (>60) Glucose Level 225 MG/DL (74-106) H Calcium Level 8.7 MG/DL (8.5-10.1) Total Bilirubin 0.5 MG/DL (0.2-1.0) Aspartate Amino Transf (AST/SGOT) 15 U/L (15-37) Alanine Aminotransferase (ALT/SGPT) 22 U/L (12-78) Alkaline Phosphatase 74 U/L (46-116) Troponin I 0.000 ng/mL (0.000-0.056) Total Protein 8.1 G/DL (6.4-8.2) Albumin 3.2 G/DL (3.4-5.0) L Globulin 4.9 g/dL Albumin/Globulin Ratio 0.7 (1.0-2.7) L Triglycerides Level 191 MG/DL (30-150) H Cholesterol Level 198 MG/DL (< 200) LDL Cholesterol 132 mg/dL (<100) H HDL Cholesterol 39 MG/DL (40-60) L Cholesterol/HDL Ratio 5.1 (3.3-4.4) H Luigi Sims MD Feb 28, 2019 18:39
--- NOTE | 2019-02-28 18:52 | History & Physical ---
History and Physical History & Physicial Dictated for Int Med-Dr Moncada no. [id number]. Jono Kirby MD Feb 28, 2019 18:52
--- NOTE | 2019-02-28 19:30 | NUR ---
NURSE NOTES: Report received from GIACOMO Boone. Patient seen in bed with family member by bedside. patient is alert, verbally responsive, able to make needs known. Denies any pain at this time. Currently on room air with no acute respiratory distress noted. IV site is to left AC 20g , running IVF of D5 1/2 NS at 50cc/hr. Bed is in lowest position. Call light is within easy reach while in bed. will continue to monitor.
[2019-02-28 20:00] VITALS: BP 160/85
[2019-02-28] MEDS: Heparin 5000 units/ml inj SUBQ SCH (20:12)
--- NOTE | 2019-02-28 20:26 | NUR ---
HAND-OFF: Report given to Zabrina.
[2019-02-28] MEDS ORDERED: Atorvastatin 20mg tab ORAL SCH (21:00)
[2019-03-01] VITALS: BP 143/75
--- NOTE | 2019-03-01 | History and Physical Report ---
DATE OF ADMISSION: 02/28/2019 CHIEF COMPLAINT: The patient is a 58-year-old female, who presents with a chief complaint of left-sided headache. HISTORY OF PRESENT ILLNESS: Began on 02/25/2019. The patient awoke with a left-sided headache. The patient also complains of pain in the left shoulder and left arm. The patient states light bothers her eyes. The patient denies nausea and vomiting. The patient presented to [place] emergency room for left-sided headache and left shoulder pain to rule out acute myocardial infarction and migraine headache. REVIEW OF SYSTEMS: CONSTITUTIONAL: The patient denies weight loss or weight gain. The patient denies fevers or chills. HEENT: The patient denies ear or throat pain. The patient complains of headache as above. CHEST: The patient denies wheeze or shortness of breath. CARDIOVASCULAR: The patient denies palpitations or chest pain. GENITOURINARY: The patient denies dysuria or increased frequency of urination. NEUROMUSCULAR: The patient denies seizures or generalized weakness. PAST MEDICAL HISTORY: Significant for, 1. Type 2 diabetes. 2. Hypertension. 3. Hypercholesterolemia. PAST SURGICAL HISTORY: The patient denies. CURRENT MEDICATIONS: 1. Aspirin 81 mg one tablet p.o. daily. 2. Clopidogrel 75 mg p.o. daily. 3. Iron sulfate 325 mg p.o. twice daily. 4. Gabapentin 300 mg p.o. 3 times daily. 5. Glipizide 5 mg one tablet p.o. twice daily. 6. Ibuprofen 800 mg p.o. q.6 hours p.r.n. 7. Lisinopril 20 mg p.o. daily. 8. Hydrochlorothiazide 25 mg p.o. daily. 9. Metformin 1000 mg p.o. twice daily. 10. Robaxin 750 mg p.o. 3 times daily p.r.n. 11. Omeprazole 20 mg p.o. daily. 12. Zantac 150 mg p.o. twice daily. ALLERGIES: No known drug allergies. SOCIAL HISTORY: The patient is and is a homemaker. The patient denies tobacco or alcohol use. PHYSICAL EXAMINATION: VITAL SIGNS: Temperature 98.4, respirations 18, pulse 85, and blood pressure 181/89. GENERAL: The patient is a well-developed and well-nourished female, slightly obese, in no apparent distress. HEENT: Eyes, pupils are equal and responsive to light and accommodation. Extraocular movements are intact. NECK: Supple without lymphadenopathy. CHEST: Lungs are clear to auscultation bilaterally without wheezes or rales. CARDIOVASCULAR: Regular rhythm and rate. S1 and S2 are normal without murmurs, rubs, or gallops. ABDOMEN: Soft, nontender, and nondistended. Positive bowel sounds. No evidence of hepatosplenomegaly. Currently, no rebound or guarding noted. EXTREMITIES: Negative for clubbing, cyanosis, or edema. RECTAL/GENITAL: Refused. NEUROLOGIC: Cranial nerves II through XII are grossly intact without focal deficits. Motor strength is 5/5 bilaterally. Deep tendon reflexes are 2+ plantar. LABORATORY STUDIES: WBC 7.9, hemoglobin 14.5, hematocrit 42.4, and platelets 180,000. Sodium 137, potassium 3.9, chloride 101, CO2 27, BUN 11, creatinine 0.7, and glucose 225. Cholesterol 198. A CT scan of the brain was reported as no acute intracranial bleed or mass. ASSESSMENT: This is a 58-year-old female. 1. Left-sided headache. 2. Shoulder pain. 3. Diabetes. 4. Hypertension. 5. Hypercholesteremia. TREATMENT: 1. Headache. A Neurology consultation has been obtained with . We will follow recommendations of Neurology. 2. Left shoulder pain. Left shoulder pain is concerning for acute coronary syndrome given history of diabetes. A Cardiology consultation has been obtained with Dr. Luigi Sims. Serial troponin levels will be performed. 3. Diabetes type 2. An Endocrinology consultation has been obtained with Dr. Ignacio Jorgensen. The patient has been started on NovoLog sliding scale. We will follow recommendations of Endocrinology. 4. Hypercholesterolemia. Jono Kirby M.D. DR: MOLINA JOB#: [id number] CC:
[2019-03-01 04:00] VITALS: BP 108/64
[2019-03-01 05:02] LABS: BASOPHILS % (AUTO) 1.4 % (0.0-2.0); EOSINOPHILS % (AUTO) 1.8 % (0.0-3.0); HEMATOCRIT 39.9 % (37.0-47.0); HEMOGLOBIN 13.6 G/DL (12.0-16.0); LYMPHOCYTES % (AUTO) 38.9 % (20.0-45.0); MEAN CORPUSCULAR VOLUME 87 FL (80-99); MONOCYTES % (AUTO) 5.8 % (1.0-10.0); NEUTROPHILS % (AUTO) 52.1 % (45.0-75.0); PLATELET COUNT 164 K/UL (150-450); RED BLOOD COUNT 4.58 M/UL (4.20-5.40); RED CELL DISTRIBUTION WIDTH 11.9 % (11.6-14.8); WHITE BLOOD COUNT 6.5 K/UL (4.8-10.8)
[2019-03-01 05:08] LABS: ANION GAP 5 mmol/L (5-15); BLOOD UREA NITROGEN 11 mg/dL (7-18); CALCIUM 8.2 MG/DL (8.5-10.1); CARBON DIOXIDE 30 MMOL/L (21-32); CHLORIDE 102 MMOL/L (98-107); CREATININE 0.7 MG/DL (0.55-1.30); POTASSIUM 4.1 MMOL/L (3.5-5.1); SODIUM 137 MMOL/L (136-145)
[2019-03-01 05:10] LABS: AMMONIA < 10 umol/L (11-32)
[2019-03-01 05:20] LABS: ALANINE AMINOTRANSFERASE 20 U/L (12-78); ALBUMIN 2.8 G/DL (3.4-5.0); ALBUMIN/GLOBULIN RATIO 0.6 (1.0-2.7); ALKALINE PHOSPHATASE 67 U/L (46-116); ASPARTATE AMINO TRANSFERASE 16 U/L (15-37); BILIRUBIN,TOTAL 0.7 MG/DL (0.2-1.0); CHOLESTEROL 178 MG/DL (< 200); HDL CHOLESTEROL 32 MG/DL (40-60); TRIGLYCERIDES 209 MG/DL (30-150)
[2019-03-01] MEDS: GlipiZIDE 5mg tab ORAL SCH ×2 (07:16→16:30)
[2019-03-01] MEDS: metFORMIN 500mg tab ORAL SCH ×3 (07:16→16:30)
--- NOTE | 2019-03-01 07:18 | NUR ---
HAND-OFF: Report given to Edmar Thomason RN.
--- NOTE | 2019-03-01 07:32 | NUR ---
NURSE NOTES: Received report from Zabrina GOODEN. Pt in bed is awake and talking. Pt on surveillance system monitor no signs of distress at this time. Bed locked and in lowest position. Call within reach. Will continue plan of care.
[2019-03-01 08:00] VITALS: BP 141/79
[2019-03-01] MEDS ORDERED: Aspirin EC 81mg tab ORAL SCH (09:00)
[2019-03-01] MEDS: Heparin 5000 units/ml inj SUBQ SCH (09:25)
--- NOTE | 2019-03-01 09:45 | NUR ---
CASE MANAGEMENT:REVIEW 58 YR OLD FEMALE FROM HOME CC: LEFT SIDED HEAD AND ARM PAIN. WEAKNESS X3 DAYS. SI: TIA 98.5 85 18 181/89 94% ON RA GLUCOSE+225 IS: TYLENOL #3 CT HEAD CHEST XRAY NPO : TO TELEMETRY INTERQUAL CRITERIA MET Addendum: 03/01/19 at 1002 by FIDE FRAGOSO LVN LVN PLAN: CAROTID DUPLEX VENOUS DUPLEX 2DECHO PT/ST EVAL
--- NOTE | 2019-03-01 11:15 | NUR ---
*-* NO INSURANCE INFORMATION IN THE BAR TO SEND CLINICALS AND REVIEWS *-*
--- NOTE | 2019-03-01 11:21 | Consultation ---
History of Present Illness General Date patient seen: Mar 01, 2019 Chief Complaint: Pain Present Illness HPI 58-year-old female with history hypertension, diabetes, non-complaint presented to ER with CC of three-day left-sided headache, left upper arm pain, and sensation that her entire left side of her body is been weak. Her CT of head was negative for any acute CVA. Allergies: Coded Allergies: No Known Allergies (Unverified , 08/21/12) Medication History Scheduled Al Hydroxide/mg Hydroxide (Mag-Al Plus Suspension), 30 ML GT AC Aspirin Ec* (Aspirin Ec*), 81 MG PO DAILY, (Reported) Atorvastatin Calcium* (Atorvastatin Calcium*), 40 MG ORAL BEDTIME, (Reported) Cephalexin* (Keflex*), 500 MG ORAL EVERY 6 HOURS Ciprofloxacin* (Cipro*), 500 MG PO BID Clopidogrel* (Clopidogrel*), 75 MG PO DAILY, (Reported) Docusate Sodium* (Colace*), 100 MG ORAL THREE TIMES A DAY Ferrous Sulfate* (Ferrous Sulfate*), 325 MG PO DAILY, (Reported) Ferrous Sulfate* (Ferrous Sulfate*), 325 MG ORAL BID, (Reported) Gabapentin* (Gabapentin*), 300 MG ORAL THREE TIMES A DAY Gemfibrozil (Gemfibrozil*), 600 MG ORAL BID, (Reported) Glipizide* (Glipizide*), 5 MG ORAL BIDAC, (Reported) Ibuprofen* (Motrin*), 800 MG PO TID, (Reported) Ibuprofen* (Motrin*), 600 MG ORAL THREE TIMES A DAY Lisinopril* (Zestril*), 20 MG PO DAILY, (Reported) Lisinopril/Hydrochlorothiazide 20-25 Mg Tab (Lisinopril-Hctz 20-25 Mg Tab), 1 TAB ORAL DAILY, (Reported) Magnesium Citrate (Magnesium Citrate), 150 ML PO DAILY Metformin Hcl* (Glucophage*), 1,000 MG PO BID, (Reported) Metformin Hcl* (Metformin Hcl*), 850 MG ORAL BIDAC, (Reported) Methocarbamol* (Robaxin-750*), 750 MG PO TID Nitrofurantoin Monohyd/M-Cryst* (Macrobid 100 Mg*), 100 MG ORAL EVERY 12 HOURS Omeprazole (Omeprazole), 20 MG ORAL DAILY, (Reported) Ranitidine Hcl* (Zantac*), 150 MG PO BID Scheduled PRN Acetaminophen (Tylenol), 650 MG ORAL Q8HR PRN for Prn Pain/Headache/Temp > 101 Acetaminophen* (Tylenol Extra Strength*), 500 MG ORAL Q8H PRN for Prn Headache/ Temp > 101 Ibuprofen* (Motrin*), 600 MG ORAL Q8H PRN for For Pain Patient History Healthcare decision maker Resuscitation status Advanced Directive on File Family History Family History: (1) Diabetes mellitus (2) CVA (cerebral vascular accident) Review of Systems All Other Systems: negative except mentioned in HPI Physical Exam General Appearance: WD/WN Lines, tubes and drains: peripheral HEENT: normocephalic, atraumatic Neck: non-tender, normal alignment Respiratory/Chest: chest wall non-tender, lungs clear Cardiovascular/Chest: normal peripheral pulses Abdomen: normal bowel sounds Last 24 Hour Vital Signs Date Time Temp Pulse Resp B/P (MAP) Pulse Ox O2 Delivery O2 Flow Rate FiO2 03/01/19 09:02 81 18 Room Air 21 03/01/19 08:00 75 03/01/19 08:00 97.7 74 20 141/79 (99) 96 03/01/19 04:00 98.0 74 20 108/64 (79) 95 03/01/19 03:40 78 03/01/19 00:00 98.0 81 20 143/75 (97) 96 02/28/19 23:54 77 02/28/19 22:09 83 18 Room Air 21 02/28/19 22:01 Room Air 02/28/19 21:37 162/85 02/28/19 20:40 Room Air 02/28/19 20:00 97.7 82 20 160/85 (110) 96 02/28/19 16:00 79 02/28/19 15:37 98.9 81 16 120/71 96 Room Air 02/28/19 14:43 98.4 02/28/19 14:07 98.4 89 16 141/87 98 Room Air 02/28/19 13:09 81 16 Room Air 02/28/19 13:07 98.4 89 18 153/89 98 Room Air 02/28/19 12:11 98.4 85 18 181/89 94 Room Air Intake and Output 02/28/19 03/01/19 19:00 07:00 Intake Total 105 ml 550 ml Balance 105 ml 550 ml Intake Oral 20 ml IV Total 85 ml 550 ml # Voids 1 3 Laboratory Tests Test 02/28/19 12:36 03/01/19 04:47 White Blood Count 7.9 K/UL (4.8-10.8) 6.5 K/UL (4.8-10.8) Red Blood Count 4.91 M/UL (4.20-5.40) 4.58 M/UL (4.20-5.40) Hemoglobin 14.5 G/DL (12.0-16.0) 13.6 G/DL (12.0-16.0) Hematocrit 42.4 % (37.0-47.0) 39.9 % (37.0-47.0) Mean Corpuscular Volume 87 FL (80-99) 87 FL (80-99) Mean Corpuscular Hemoglobin 29.6 PG (27.0-31.0) 29.7 PG (27.0-31.0) Mean Corpuscular Hemoglobin Concent 34.2 G/DL (32.0-36.0) 34.1 G/DL (32.0-36.0) Red Cell Distribution Width 11.9 % (11.6-14.8) 11.9 % (11.6-14.8) Platelet Count 180 K/UL (150-450) 164 K/UL (150-450) Mean Platelet Volume 10.9 FL (6.5-10.1) H 9.7 FL (6.5-10.1) Neutrophils (%) (Auto) 67.4 % (45.0-75.0) 52.1 % (45.0-75.0) Lymphocytes (%) (Auto) 25.2 % (20.0-45.0) 38.9 % (20.0-45.0) Monocytes (%) (Auto) 5.3 % (1.0-10.0) 5.8 % (1.0-10.0) Eosinophils (%) (Auto) 1.2 % (0.0-3.0) 1.8 % (0.0-3.0) Basophils (%) (Auto) 0.9 % (0.0-2.0) 1.4 % (0.0-2.0) Prothrombin Time 10.5 SEC (9.30-11.50) 10.8 SEC (9.30-11.50) Prothromb Time International Ratio 1.0 (0.9-1.1) 1.0 (0.9-1.1) Activated Partial Thromboplast Time 28 SEC (23-33) 27 SEC (23-33) Sodium Level 137 MMOL/L (136-145) 137 MMOL/L (136-145) Potassium Level 3.9 MMOL/L (3.5-5.1) 4.1 MMOL/L (3.5-5.1) Chloride Level 101 MMOL/L (98-107) 102 MMOL/L (98-107) Carbon Dioxide Level 27 MMOL/L (21-32) 30 MMOL/L (21-32) Anion Gap 9 mmol/L (5-15) 5 mmol/L (5-15) Blood Urea Nitrogen 11 mg/dL (7-18) 11 mg/dL (7-18) Creatinine 0.7 MG/DL (0.55-1.30) 0.7 MG/DL (0.55-1.30) Estimat Glomerular Filtration Rate > 60 mL/min (>60) > 60 mL/min (>60) Glucose Level 225 MG/DL (74-106) H 255 MG/DL (74-106) H Calcium Level 8.7 MG/DL (8.5-10.1) 8.2 MG/DL (8.5-10.1) L Total Bilirubin 0.5 MG/DL (0.2-1.0) 0.7 MG/DL (0.2-1.0) Aspartate Amino Transf (AST/SGOT) 15 U/L (15-37) 16 U/L (15-37) Alanine Aminotransferase (ALT/SGPT) 22 U/L (12-78) 20 U/L (12-78) Alkaline Phosphatase 74 U/L (46-116) 67 U/L (46-116) Troponin I 0.000 ng/mL (0.000-0.056) Total Protein 8.1 G/DL (6.4-8.2) 7.3 G/DL (6.4-8.2) Albumin 3.2 G/DL (3.4-5.0) L 2.8 G/DL (3.4-5.0) L Globulin 4.9 g/dL 4.5 g/dL Albumin/Globulin Ratio 0.7 (1.0-2.7) L 0.6 (1.0-2.7) L Triglycerides Level 191 MG/DL (30-150) H 209 MG/DL (30-150) H Cholesterol Level 198 MG/DL (< 200) 178 MG/DL (< 200) LDL Cholesterol 132 mg/dL (<100) H 118 mg/dL (<100) H HDL Cholesterol 39 MG/DL (40-60) L 32 MG/DL (40-60) L Cholesterol/HDL Ratio 5.1 (3.3-4.4) H 5.6 (3.3-4.4) H Hemoglobin A1c 9.6 % (4.3-6.0) H Ammonia < 10 umol/L (11-32) L Thyroid Stimulating Hormone (TSH) 6.931 uiU/mL (0.358-3.740) Free Thyroxine 1.46 NG/DL (0.76-1.46) Height (Feet): 5 Height (Inches): 4.00 Weight (Pounds): 242 Medications Current Medications Medications (Trade) Dose Ordered Sig/Andrew Route PRN Reason Start Time Stop Time Status Last Admin Dose Admin Acetaminophen (Tylenol) 650 mg Q4H PRN ORAL fever 02/28/19 15:45 03/30/19 15:44 02/28/19 21:37 Al Hydroxide/Mg Hydroxide (Mylanta II) 30 ml Q6H PRN ORAL dyspepsia 02/28/19 15:40 03/30/19 15:39 Albuterol/ Ipratropium (Albuterol/ Ipratropium) 3 ml Q4H PRN HHN Shortness of Breath 02/28/19 15:45 03/05/19 15:44 Aspirin (Ecotrin) 81 mg DAILY ORAL 03/01/19 09:00 03/31/19 08:59 03/01/19 09:18 Atorvastatin Calcium (Lipitor) 40 mg BEDTIME ORAL 02/28/19 21:00 03/30/19 20:59 02/28/19 20:10 Clonidine HCl (Catapres Tab) 0.1 mg Q4H PRN ORAL For High Blood Pressure 02/28/19 15:45 03/30/19 15:44 02/28/19 21:37 Clopidogrel Bisulfate (Plavix) 75 mg DAILY ORAL 03/01/19 09:00 03/31/19 08:59 03/01/19 09:18 Dextrose (Dextrose 50%) 25 ml Q30M PRN IV Hypoglycemia 03/01/19 07:00 03/31/19 06:59 Dextrose (Dextrose 50%) 50 ml Q30M PRN IV Hypoglycemia 03/01/19 07:00 03/31/19 06:59 Dextrose/Sodium Chloride 1,000 ml @ 50 mls/hr Q20H IV 02/28/19 15:39 03/30/19 15:38 02/28/19 17:35 Gabapentin (Neurontin) 300 mg THREE TIMES A DAY ORAL 02/28/19 18:00 03/30/19 17:59 03/01/19 09:18 Glipizide (Glucotrol) 5 mg BIAC ORAL 03/01/19 07:00 03/31/19 06:59 03/01/19 07:16 Heparin Sodium (Porcine) (Heparin 5000 units/ml) 5,000 units EVERY 12 HOURS SUBQ 02/28/19 21:00 03/30/19 20:59 03/01/19 09:25 Insulin Aspart (NovoLOG) BEFORE MEALS AND HS SUBQ 03/01/19 11:30 03/31/19 11:29 Lorazepam (Ativan 2mg/ml 1ml) 0.5 mg Q4H PRN IV For Anxiety 02/28/19 15:45 03/07/19 15:44 Metformin HCl (Glucophage) 500 mg TIAC ORAL 03/01/19 07:00 03/31/19 06:59 03/01/19 07:16 Morphine Sulfate (Morphine Sulfate) 1 mg Q4H PRN IVP For Pain 7-10 02/28/19 15:45 03/07/19 15:44 Nitroglycerin (Ntg) 0.4 mg Q5M X 3 DOSES PRN SL Prn Chest Pain 02/28/19 15:45 03/30/19 15:44 Ondansetron HCl (Zofran) 4 mg Q6H PRN IVP Nausea & Vomiting 02/28/19 15:45 03/30/19 15:44 Polyethylene Glycol (Miralax) 17 gm HSPRN PRN ORAL Constipation 02/28/19 15:45 03/30/19 15:44 Promethazine HCl/ Codeine (Phenergan with Codeine) 5 ml Q4H PRN ORAL For Cough 02/28/19 15:45 03/30/19 15:44 Temazepam (Restoril) 15 mg HSPRN PRN ORAL Insomnia 02/28/19 15:45 03/07/19 15:44 Assessment/Plan Problem List: (1) TIA (transient ischemic attack) ICD Codes: G45.9 - Transient cerebral ischemic attack, unspecified SNOMED: 793155598 (2) HTN (hypertension) ICD Codes: I10 - Essential (primary) hypertension SNOMED: 04743024 (3) Diabetes mellitus ICD Codes: E11.9 - Type 2 diabetes mellitus without complications SNOMED: 17589631 (4) Non-compliance ICD Codes: Z91.19 - Patient's noncompliance with other medical treatment and regimen SNOMED: 0188677 Assessment/Plan: CT of head was negative MRI of neck pending start feeding Bette Atkinson MD Mar 01, 2019 11:21
[2019-03-01] MEDS ORDERED: NovoLOG Insulin Flexpen SUBQ SCH (11:30)
--- NOTE | 2019-03-01 11:40 | NUR ---
REFERRED BY DR GARCIA (PRIMARY DR BARBOSA/TARYN) FOR A SWALLOW EVALUATION, SEE FULL REPORT IN ST CARE ACTIVITY SECTION. CHART REVIEWED. DYSPHAGIA RISK FACTORS FOR THIS 58 Y.O. 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 H/O OBESITY, DIALYSIS. PER PATIENT AND FAMILY, PATIENT HAD A PRIOR STROKE ONE YEAR AGO W/O MUCH RESIDUAL. PATIENT STOPPED TAKING ALL HER MEDICATION (FOR DIABETES AND BP ETC) BECAUSE IT MADE HER FEEL ACID IN HER THROAT AND GAVE HER INDIGESTION). HAS GERD AND ON ZANTAC 150 MG PO 2 X PER DAY H/O GASTRITIS 2011, METFORIN. H/O HIGH CHOLESTEROL AND HTN. NOW PATIENT STILL HAS WEAKNESS IN THE LEFT SIDE OF HER ARM/HAND SEE PT REPORT. NO POLST NOR ADVANCE DIRECTIVE FOR ARTIFICIAL NUTRITION IF NEEDS. AT HOME ON A CURRENTLY NPO EXCEPT ICES CHIPS AND MEDS. PER PATIENT, SHE HAS NOT EATEN FOR 2 DAYS. SHE WAS ON A DIABETIC AND LOW SALT DIET REGULAR TEXTURE AND THIN LIQUIDS W/O SWALLOWING PROBLEMS IN THE PAST. DID SAY SHE HAD REFLUX SYMPTOMS. INITIAL IMPRESSIONS: GROSSLY FUNCTIONAL OROMOTOR AND SWALLOWING SKILLS WITHOUT OVERT S/S OF ASPIRATION ON THIN LIQUIDS (SEQUENTIAL SIPS 3 OZ BERLIN SWALLOW PROTOCOL), PUREED TSP, AND MASTICATED SOLID (1/2 CRACKER). HAS PAIN FROM UPPER LEFT TOOTH RECOMMENDATIONS: MAY NEED MOD BARIUM SWALLOW STUDY (MBSS) TO FURTHER ASSESS SWALLOW, DETERMINE SILENT ASP RISK/ETIOLOGY, AND ATTEMPT TRIAL TX (GIVEN CURRENT CVA AND OLD CVA HX) IF PO CONTINUE FOR QUALITY OF LIFE PURPOSES, CONSIDER SOFT CHEWABLE DIET AND THIN LIQUIDS WITH POSTED REFLUX AND ASPIRATION PRECAUTIONS WITH SUPERVISION. MAY NEED ADA/LOW SALT AND BLAND (FOR GERD) SEE RD NOTE AND WAS ON THIS ADA/LOW SALT DIET PRIOR TO ADMIT. CONSIDER GI CONSULT REGARDING GERD MEDS AND PROBLEMS SINCE SHE AVOIDS TAKING ALL MEDS DUE TO PROBLEMS WITH INDIGESTION AND ACID REFLUX. WILL FOLLOW FOR REFLUX EDUCATION/PRECAUTIONS AND MEAL OBSERVATION AND MBSS IF INDICATED (LUNGS CLEAR NOW). EDUCATED/TRAINED STAFF AND FAMILY/PT IN POSTED PRECAUTIONS. D/W DR GARCIA RN (NAV), PATIENT IN [place], AND HER SON. Addendum: 03/01/19 at 1148 by FRED HOWELL FILM PAINTER [employer]G-[employer] EVAL IN CAMERO[place]IAN FOR HIGHER LEVEL DEFICITS (GROSSLY FUNCTIONAL SPEECH AND SIMPLE EXPRESSIVE/RECEPTIVE LANGUAGE SKILLS). Addendum: 03/01/19 at 1153 by FRED HOWELL FILM PAINTER HAS SILENT ASPIRATION RISK GIVEN PRESENT CVA SX AND OLD CVA ONE YEAR AGO.
--- NOTE | 2019-03-01 12:26 | NUR ---
*-* INSURANCE *-* ALL CLINICALS AND REVIEWS HAVE BEEN FAXED TO: IPA: [facility] [place] [phone] & [facility] NCM:CHRISTINE P: Work Fax F: [phone] Work
--- NOTE | 2019-03-01 12:36 | NUR ---
Per CT paint laboratory technician Kian. Dr. Atkinson gave the ok to [facility] because machine is broken. Now is CT of the cervical spine no contrast.
[2019-03-01] MEDS ORDERED: Gadavist 7.5mMol/7.5ml vial IV PRN (12:45)
--- NOTE | 2019-03-01 13:06 | NUR ---
ST NOTE: DR GARCIA APPROVED MEDS ZANTAC AND DR RICHIE YATES MD TO SEE PATIENT TODAY. BENJAMIN HALL TO SEE PATIENT REGARDING NEUROLOGY F/UP AND BRAIN SCAN
--- NOTE | 2019-03-01 13:44 | NUR ---
P.T Note: P.T EVALUATION COMPLETED. PATIENT PRESENTED NO SIGNS OF STRENGTH, BALANCE NOR COORDINATION DEFICITS. PATIENT IS CURRENTLY BASELINE INDEPENDENT IN ADL/FUNCTIONAL MOBILITIES AND GAIT/LOCOMOTIONS. SKILLED P.T SERVICE NOT RECOMMENDED AT THIS TIME. EDUCATED PATIENT THE IMPORTANCE OF OOB ACTIVITIES VS BEDREST DURING STAY. ENCOURAGED PATIENT OOB ACTIVITIES I.E AMBULATE TOLERATED UNLESS OTHERWISE SPECIFIED BY PHYSICIAN. PATIENT VERBALIZED GOOD UNDERSTANDING. D/C P.T SERVICES. THANK YOU FOR THIS REFERRAL.
--- NOTE | 2019-03-01 13:46 | GI Initial Consult Note ---
History of Present Illness General Date patient seen: Mar 01, 2019 Time patient seen: 13:29 Reason for Hospitalization: Pain Referring physician: Dr. Farley Reason for Consultation: GERD Present Illness HPI 58-year-old female with history of high cholesterol and hypertension presents with three-day history of left-sided headache, left upper arm pain, and sensation that her entire left side of her body is been weak. She denies any numbness, tingling, slurred speech, blurred vision, but she does report left- sided toothache as well. GI consulted for abdominal pain. Pt seen, awake A&Ox4 NAD with no active s/sx of N/V/D. According to the patient, she has history of severe acid reflux for the past 5 years. The patient reports severe pain in which she describes as burning especially after PO intake. She does not take any ppi's or H2B's on a regular basis. She is unsure if she has any history of endoscopy, reports her last colonoscopy was greater than 5 years ago. Abdomen is soft, non distended non tender. The patient initially admitted to r/o CVA, is on plavix. Labs reviewed; no anemia, no transaminitis. Home Meds Active Scripts Magnesium Citrate (MAGNESIUM CITRATE) 296 Ml Solution, 150 ML PO DAILY for 2 Days, #296 ML Prov:Freddy Vega MD 10/30/18 Docusate Sodium* (COLACE*) 100 Mg Capsule, 100 MG ORAL THREE TIMES A DAY for 30 Days, CAP Prov:Freddy Vega MD 10/30/18 Ibuprofen* (MOTRIN*) 600 Mg Tablet, 600 MG ORAL Q8H PRN for For Pain, #30 TAB 0 Refills Prov:Freddy Vega MD 04/30/18 Cephalexin* (KEFLEX*) 500 Mg Capsule, 500 MG ORAL EVERY 6 HOURS, #28 CAP Prov:Freddy Vega MD 04/30/18 Methocarbamol* (ROBAXIN-750*) 750 Mg Tablet, 750 MG PO TID, #21 TAB 0 Refills Prov:Alma Pichardo DO 03/23/17 Acetaminophen (Tylenol) 325 Mg Tablet, 650 MG ORAL Q8HR PRN for Prn Pain/ Headache/Temp > 101, #30 TAB 0 Refills Prov:Alma Pichardo DO 03/23/17 Gabapentin* (GABAPENTIN*) 300 Mg Capsule, 300 MG ORAL THREE TIMES A DAY, #60 CAP 0 Refills Prov:TERZIANALBERTY P.A. 02/06/17 Acetaminophen* (TYLENOL EXTRA STRENGTH*) 500 Mg Tablet, 500 MG ORAL Q8H PRN for Prn Headache/Temp > 101, #30 TAB 0 Refills Prov:KHUSHBUANSONU P.A. 02/06/17 Nitrofurantoin Monohyd/M-Cryst* (MACROBID 100 MG*) 100 Mg Capsule, 100 MG ORAL EVERY 12 HOURS for 7 Days, CAP Prov:Regine Galeano 06/13/16 Ibuprofen* (MOTRIN*) 600 Mg Tablet, 600 MG ORAL THREE TIMES A DAY, #30 TAB Prov:Regine Galeano 06/13/16 Al Hydroxide/mg Hydroxide (Mag-Al Plus Suspension) 30 Ml Susp, 30 ML GT AC for 5 Days, 0 Refills Prov:JARON BEDOYA P.AStefano 08/21/12 Ranitidine Hcl* (ZANTAC*) 150 Mg Tablet, 150 MG PO BID for 14 Days Prov:JARON BEDOYA P.AStefano 08/21/12 Ciprofloxacin* (CIPRO*) 500 Mg Tablet, 500 MG PO BID, #14 TAB Take 1 tablet by mouth 2 times a day Prov:JARON BEDOYA P.A. 08/21/12 Reported Medications Atorvastatin Calcium* (ATORVASTATIN CALCIUM*) 40 Mg Tablet, 40 MG ORAL BEDTIME, TAB 10/30/18 Glipizide* (GLIPIZIDE*) 5 Mg Tablet, 5 MG ORAL BIDAC, TAB 10/30/18 Gemfibrozil (GEMFIBROZIL*) 600 Mg Tablet, 600 MG ORAL BID, TAB 0 Refills 06/13/16 Metformin Hcl* (METFORMIN HCL*) 850 Mg Tablet, 850 MG ORAL BIDAC, TAB 06/13/16 Lisinopril/Hydrochlorothiazide 20-25 Mg Tab (LISINOPRIL-HCTZ 20-25 MG TAB) 1 Each Tablet, 1 TAB ORAL DAILY, TAB 06/13/16 Omeprazole (OMEPRAZOLE) 20 Mg Tablet.dr, 20 MG ORAL DAILY, TAB 06/13/16 Ferrous Sulfate* (FERROUS SULFATE*) 325 Mg Tablet, 325 MG ORAL BID, #90 TAB 0 Refills 06/13/16 Clopidogrel* (CLOPIDOGREL*) 75 Mg Tablet, 75 MG PO DAILY 08/21/12 Metformin Hcl* (GLUCOPHAGE*) 500 Mg Tablet, 1000 MG PO BID, TAB Take 1 tablet by mouth every day. 08/21/12 Aspirin Ec* (ASPIRIN EC*) 81 Mg Tablet.dr, 81 MG PO DAILY 08/21/12 Ferrous Sulfate* (FERROUS SULFATE*) 325 Mg Tablet, 325 MG PO DAILY, TAB Take 1 tablet by mouth every day. 08/21/12 Ibuprofen* (MOTRIN*) 800 Mg Tablet, 800 MG PO TID, TAB Take 1 tablet by mouth three times a day as needed for pain. 08/21/12 Lisinopril* (ZESTRIL*) 20 Mg Tablet, 20 MG PO DAILY, #10 TAB Take 1 tablet by mouth every day. 08/21/12 Med list reviewed/reconciled: Yes Allergies: Coded Allergies: No Known Allergies (Unverified , 08/21/12) Patient History History Provided By: Patient, Family Member, Medical Record PMH Narrative Hx Hypertension: Yes Hx Pacemaker: No Hx Asthma: No Hx COPD: No Hx Diabetes: Yes Hx Gastrointestinal Problems: Yes - Gall stones Hx Cerebrovascular Accident: No Hx Seizures: No Social History: Denies: smoking, alcohol use, drug use, other Review of Systems All Other Systems: negative except mentioned in HPI Physical Exam Vital Signs Date Time Temp Pulse Resp B/P (MAP) Pulse Ox O2 Delivery O2 Flow Rate FiO2 02/28/19 12:11 98.4 85 18 181/89 94 Room Air 02/28/19 22:09 21 Sp02 EP Interpretation: reviewed, normal Labs Laboratory Tests Test 03/01/19 04:47 White Blood Count 6.5 K/UL (4.8-10.8) Red Blood Count 4.58 M/UL (4.20-5.40) Hemoglobin 13.6 G/DL (12.0-16.0) Hematocrit 39.9 % (37.0-47.0) Mean Corpuscular Volume 87 FL (80-99) Mean Corpuscular Hemoglobin 29.7 PG (27.0-31.0) Mean Corpuscular Hemoglobin Concent 34.1 G/DL (32.0-36.0) Red Cell Distribution Width 11.9 % (11.6-14.8) Platelet Count 164 K/UL (150-450) Mean Platelet Volume 9.7 FL (6.5-10.1) Neutrophils (%) (Auto) 52.1 % (45.0-75.0) Lymphocytes (%) (Auto) 38.9 % (20.0-45.0) Monocytes (%) (Auto) 5.8 % (1.0-10.0) Eosinophils (%) (Auto) 1.8 % (0.0-3.0) Basophils (%) (Auto) 1.4 % (0.0-2.0) Prothrombin Time 10.8 SEC (9.30-11.50) Prothromb Time International Ratio 1.0 (0.9-1.1) Activated Partial Thromboplast Time 27 SEC (23-33) Sodium Level 137 MMOL/L (136-145) Potassium Level 4.1 MMOL/L (3.5-5.1) Chloride Level 102 MMOL/L (98-107) Carbon Dioxide Level 30 MMOL/L (21-32) Anion Gap 5 mmol/L (5-15) Blood Urea Nitrogen 11 mg/dL (7-18) Creatinine 0.7 MG/DL (0.55-1.30) Estimat Glomerular Filtration Rate > 60 mL/min (>60) Glucose Level 255 MG/DL (74-106) H Hemoglobin A1c 9.6 % (4.3-6.0) H Calcium Level 8.2 MG/DL (8.5-10.1) L Total Bilirubin 0.7 MG/DL (0.2-1.0) Aspartate Amino Transf (AST/SGOT) 16 U/L (15-37) Alanine Aminotransferase (ALT/SGPT) 20 U/L (12-78) Alkaline Phosphatase 67 U/L (46-116) Ammonia < 10 umol/L (11-32) L Total Protein 7.3 G/DL (6.4-8.2) Albumin 2.8 G/DL (3.4-5.0) L Globulin 4.5 g/dL Albumin/Globulin Ratio 0.6 (1.0-2.7) L Triglycerides Level 209 MG/DL (30-150) H Cholesterol Level 178 MG/DL (< 200) LDL Cholesterol 118 mg/dL (<100) H HDL Cholesterol 32 MG/DL (40-60) L Cholesterol/HDL Ratio 5.6 (3.3-4.4) H Thyroid Stimulating Hormone (TSH) 6.931 uiU/mL (0.358-3.740) Free Thyroxine 1.46 NG/DL (0.76-1.46) General Appearance: well appearing, no apparent distress, alert Head: normocephalic EENT: PERRL/EOMI, normal ENT inspection Neck: supple Respiratory: normal breath sounds, no respiratory distress Cardiovascular: normal rate Gastrointestinal: normal inspection, non tender, soft, normal bowel sounds, non -distended Rectal: deferred Genitourinary: no CVA tenderness Musculoskeletal: normal inspection, back normal Neurologic: normal inspection, alert, oriented x3, responsive Psychiatric: normal inspection, judgement/insight normal, memory normal Skin: normal inspection, normal color, no rash, warm/dry, palpation normal, well hydrated Lymphatic: normal inspection, no adenopathy Current Medications Current Medications Medications (Trade) Dose Ordered Sig/Andrew Route PRN Reason Start Time Stop Time Status Last Admin Dose Admin Acetaminophen (Tylenol) 650 mg Q4H PRN ORAL fever 02/28/19 15:45 03/30/19 15:44 02/28/19 21:37 Al Hydroxide/Mg Hydroxide (Mylanta II) 30 ml Q6H PRN ORAL dyspepsia 02/28/19 15:40 03/30/19 15:39 Albuterol/ Ipratropium (Albuterol/ Ipratropium) 3 ml Q4H PRN HHN Shortness of Breath 02/28/19 15:45 03/05/19 15:44 Aspirin (Ecotrin) 81 mg DAILY ORAL 03/01/19 09:00 03/31/19 08:59 03/01/19 09:18 Atorvastatin Calcium (Lipitor) 80 mg BEDTIME ORAL 03/01/19 21:00 03/31/19 20:59 Clonidine HCl (Catapres Tab) 0.1 mg Q4H PRN ORAL For High Blood Pressure 02/28/19 15:45 03/30/19 15:44 02/28/19 21:37 Clopidogrel Bisulfate (Plavix) 75 mg DAILY ORAL 03/01/19 09:00 03/31/19 08:59 03/01/19 09:18 Dextrose (Dextrose 50%) 25 ml Q30M PRN IV Hypoglycemia 03/01/19 07:00 03/31/19 06:59 Dextrose (Dextrose 50%) 50 ml Q30M PRN IV Hypoglycemia 03/01/19 07:00 03/31/19 06:59 Dextrose/Sodium Chloride 1,000 ml @ 50 mls/hr Q20H IV 02/28/19 15:39 03/30/19 15:38 02/28/19 17:35 Gabapentin (Neurontin) 300 mg THREE TIMES A DAY ORAL 02/28/19 18:00 03/30/19 17:59 03/01/19 09:18 Gadobutrol (Gadavist) 7.5 mmol NOW PRN IV Radiology Procedure 03/01/19 12:45 03/05/19 12:35 Glipizide (Glucotrol) 5 mg BIAC ORAL 03/01/19 07:00 03/31/19 06:59 03/01/19 07:16 Heparin Sodium (Porcine) (Heparin 5000 units/ml) 5,000 units EVERY 12 HOURS SUBQ 02/28/19 21:00 03/30/19 20:59 03/01/19 09:25 Insulin Aspart (NovoLOG) BEFORE MEALS AND HS SUBQ 03/01/19 11:30 03/31/19 11:29 Lorazepam (Ativan 2mg/ml 1ml) 0.5 mg Q4H PRN IV For Anxiety 02/28/19 15:45 03/07/19 15:44 Metformin HCl (Glucophage) 500 mg TIAC ORAL 03/01/19 07:00 03/31/19 06:59 03/01/19 07:16 Morphine Sulfate (Morphine Sulfate) 1 mg Q4H PRN IVP For Pain 7-10 02/28/19 15:45 03/07/19 15:44 Nitroglycerin (Ntg) 0.4 mg Q5M X 3 DOSES PRN SL Prn Chest Pain 02/28/19 15:45 03/30/19 15:44 Ondansetron HCl (Zofran) 4 mg Q6H PRN IVP Nausea & Vomiting 02/28/19 15:45 03/30/19 15:44 Polyethylene Glycol (Miralax) 17 gm HSPRN PRN ORAL Constipation 4/25/19 15:45 03/30/19 15:44 Promethazine HCl/ Codeine (Phenergan with Codeine) 5 ml Q4H PRN ORAL For Cough 02/28/19 15:45 03/30/19 15:44 Temazepam (Restoril) 15 mg HSPRN PRN ORAL Insomnia 02/28/19 15:45 03/07/19 15:44 GI: Plan Problems: (1) GERD (gastroesophageal reflux disease) (2) Abdominal pain (3) Constipation (4) Diabetes mellitus Plan will consider EGD monday if still inpatient regular diet ppi, H2B qhs zofran prn bowel regime follow up neurology recs will follow with additional recommendations post procedure outpatient colonoscopy Discussed with Dr. Field. Thank you for this patient referral, we will follow. The patient was seen and examined at bedside and all new and available data was reviewed in the patients chart. I agree with the above findings, impression and plan. (Patient seen earlier today. Signature stamp does not reflect patient encounter time.). - MD Kelin TaylorUnited States Air Force [facility] ClinicSteffen RHEUMATOLOGIST Mar 01, 2019 13:46
[2019-03-01] MEDS: NovoLOG Insulin Flexpen SUBQ SCH ×2 (14:19→16:30)
[2019-03-01] MEDS: D5 1/2NS 1,000 ML IV SCH (14:21)
--- NOTE | 2019-03-01 14:34 | Diagnostic Imaging Report ---
Indication: Neck pain. Technique: Continuous helical imaging of the cervical spine was obtained transaxially from the skull base to the upper thoracic spine. 2-D coronal and sagittal reformatted images were obtained. Automatic Exposure Control was utilized. Total Dose length Product (DLP): 575.[address] Dose Index Volume (CTDIvol): 26.59 mGy Comparison: None Findings: There is no acute fracture or malalignment identified. There is no soft tissue swelling identified. 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 Some of the intervertebral discs show mild narrowing. Impression: No acute injury Mild spondylosis The CT scanner at [facility] is accredited by the [employer] and the scans are performed using dose optimization techniques as appropriate to a performed exam including Automatic Exposure control.
--- NOTE | 2019-03-01 14:35 | NUR ---
NURSE NOTES: Per [employer] [place] cancel MRI of the brain.
--- NOTE | 2019-03-01 14:54 | Discharge Summary ---
Discharge Summary Hospital Course Date of Admission Feb 28, 2019 at 13:57 Date of Discharge Admitting Diagnosis CVA HPI Beverly Rojo is a 58 year old female who was admitted on Feb 28, 2019 at 13:57 for Cerebral Vascular Accident Hospital Course Last 24 Hour Vital Signs Date Time Temp Pulse Resp B/P (MAP) Pulse Ox O2 Delivery O2 Flow Rate FiO2 03/01/19 09:02 81 18 Room Air 21 03/01/19 08:00 75 03/01/19 08:00 97.7 74 20 141/79 (99) 96 03/01/19 04:00 98.0 74 20 108/64 (79) 95 03/01/19 03:40 78 03/01/19 00:00 98.0 81 20 143/75 (97) 96 02/28/19 23:54 77 02/28/19 22:09 83 18 Room Air 21 02/28/19 22:01 Room Air 02/28/19 21:37 162/85 02/28/19 20:40 Room Air 02/28/19 20:00 97.7 82 20 160/85 (110) 96 02/28/19 16:00 79 02/28/19 15:37 98.9 81 16 120/71 96 Room Air General: No acute distress, awake and alert HEENT: NCAT, sclera anicteric, PERRL, EOMI. Neck: Supple, no significant jugular venous distention, Lungs: Good inspiratory effort, no accessory muscle use, clear to auscultation bilaterally, no Wheeze or Rales. Heart: Regular rate and rhythm, normal S1/S2, no murmurs Abdomen: soft, nontender, nondistended. Normoactive bowel sounds, morbid Obesity. / Rectal: Refused and deferred. Extremities: No Cyanosis , clubbing or edema. Neuro: A&O x 3, Able to move all extremities Skin: warm, no rashes or lesions Psych: Normal mood and affect. Discharge Discharge Disposition Patient was discharged to Quang Moncada MD Mar 01, 2019 14:54
--- NOTE | 2019-03-01 17:00 | Consultation ---
DATE OF CONSULTATION: 03/01/2019 ENDOCRINOLOGY CONSULTATION CONSULTING PHYSICIAN: Ignacio Jorgensen M.D. REFERRING PHYSICIAN: Quang Moncada M.D. REASON FOR CONSULTATION: Diabetes management. HISTORY OF PRESENT ILLNESS: This is a 58-year-old female with history of diabetes and hypertension presented to the hospital with headache and admitted to the floor for observation and treatment. Glucose is elevated and I was called to manage diabetes. The patient is on combination of metformin and glipizide. PAST MEDICAL HISTORY: 1. Diabetes. 2. Hypertension. SOCIAL HISTORY: No smoking, alcohol, or drug use. ALLERGIES TO MEDICINE: None. MEDICATIONS: Reviewed and reconciled. Diabetes medication mentioned in the history of present illness. REVIEW OF SYSTEMS: A 12-point system was performed. The pertinent positives and negatives are mentioned in HPI. FAMILY HISTORY: Noncontributory. LABORATORY DATA: Sodium 137, potassium 4.1, chloride 102, bicarbonate 30, BUN 11, and creatinine 0.7. Glucose 225. Troponin negative. TSH 7.38. LDL 118. PHYSICAL EXAMINATION: GENERAL: The patient is awake. VITAL SIGNS: Blood pressure 108/64, pulse 74, temperature 98 degrees, and respiratory rate 20. HEENT: Pupils are equal and reactive to light. Sclerae anicteric. NECK: No JVD. HEART: Regular. LUNGS: Clear. ABDOMEN: Positive bowel sounds. Soft. EXTREMITIES: No clubbing, cyanosis, or edema. DIAGNOSIS: Diabetes, out of control. PLAN: 1. Resume metformin. 2. Resume glipizide. 3. NovoLog sliding scale before food and at bedtime. 4. Check hemoglobin A1c. 5. Repeat TSH with the free T4. 6. I will follow the results and further advice. Thank you, Dr. Moncada, for the courtesy of this consultation. Ignacio Jorgensen M.D. DR: GIACOMO/MAYO JOB#: [id number] CC:
[2019-03-01] MEDS ORDERED: Docusate 100mg cap ORAL SCH (18:00)
--- NOTE | 2019-03-01 19:52 | NUR ---
NURSE NOTES: Pt discharged today went home with family. DC IV applied pressure and bandaid pt is not bleeding. Belongings were given to pt. family. Medical bracelet off.
[2019-03-01] MEDS ORDERED: Atorvastatin 80mg tab ORAL SCH (21:00)
--- NOTE | 2019-03-01 21:57 | Cardiology Report ---
APPROVED REPORT EKG Measurement Heart [id number] Normal sinus rhythm Low voltage QRS Left anterior fascicular block Inferior-posterior infarct, age undetermined Abnormal ECG
--- NOTE | 2019-03-01 23:32 | Neurology Progress Note ---
Interim History Interim History ROS Limited/Unobtainable: No Objective Physical Exam Last Vital Signs Date Time Temp Pulse Resp B/P (MAP) Pulse Ox O2 Delivery O2 Flow Rate FiO2 03/01/19 09:02 81 18 Room Air 21 03/01/19 08:00 97.7 141/79 (99) 96 Laboratory Tests Test 03/01/19 04:47 White Blood Count 6.5 K/UL (4.8-10.8) Red Blood Count 4.58 M/UL (4.20-5.40) Hemoglobin 13.6 G/DL (12.0-16.0) Hematocrit 39.9 % (37.0-47.0) Mean Corpuscular Volume 87 FL (80-99) Mean Corpuscular Hemoglobin 29.7 PG (27.0-31.0) Mean Corpuscular Hemoglobin Concent 34.1 G/DL (32.0-36.0) Red Cell Distribution Width 11.9 % (11.6-14.8) Platelet Count 164 K/UL (150-450) Mean Platelet Volume 9.7 FL (6.5-10.1) Neutrophils (%) (Auto) 52.1 % (45.0-75.0) Lymphocytes (%) (Auto) 38.9 % (20.0-45.0) Monocytes (%) (Auto) 5.8 % (1.0-10.0) Eosinophils (%) (Auto) 1.8 % (0.0-3.0) Basophils (%) (Auto) 1.4 % (0.0-2.0) Prothrombin Time 10.8 SEC (9.30-11.50) Prothromb Time International Ratio 1.0 (0.9-1.1) Activated Partial Thromboplast Time 27 SEC (23-33) Sodium Level 137 MMOL/L (136-145) Potassium Level 4.1 MMOL/L (3.5-5.1) Chloride Level 102 MMOL/L (98-107) Carbon Dioxide Level 30 MMOL/L (21-32) Anion Gap 5 mmol/L (5-15) Blood Urea Nitrogen 11 mg/dL (7-18) Creatinine 0.7 MG/DL (0.55-1.30) Estimat Glomerular Filtration Rate > 60 mL/min (>60) Glucose Level 255 MG/DL (74-106) H Hemoglobin A1c 9.6 % (4.3-6.0) H Calcium Level 8.2 MG/DL (8.5-10.1) L Total Bilirubin 0.7 MG/DL (0.2-1.0) Aspartate Amino Transf (AST/SGOT) 16 U/L (15-37) Alanine Aminotransferase (ALT/SGPT) 20 U/L (12-78) Alkaline Phosphatase 67 U/L (46-116) Ammonia < 10 umol/L (11-32) L Total Protein 7.3 G/DL (6.4-8.2) Albumin 2.8 G/DL (3.4-5.0) L Globulin 4.5 g/dL Albumin/Globulin Ratio 0.6 (1.0-2.7) L Triglycerides Level 209 MG/DL (30-150) H Cholesterol Level 178 MG/DL (< 200) LDL Cholesterol 118 mg/dL (<100) H HDL Cholesterol 32 MG/DL (40-60) L Cholesterol/HDL Ratio 5.6 (3.3-4.4) H Thyroid Stimulating Hormone (TSH) 6.931 uiU/mL (0.358-3.740) Free Thyroxine 1.46 NG/DL (0.76-1.46) Impression/Recommendations Problems: (1) Arthritis (2) Neuropathy (3) Abdominal pain (4) Dental infection (5) UTI (urinary tract infection) (6) Diabetes mellitus (7) CVA (cerebral vascular accident) Assessment & Plan: No residual symptoms at time of exam. Patient denies choking or coughing while eating No facial asymmetry at time of exam - normal smile, eyebrow raise, cheek puff and midline tongue No dysarthria or focal weakness No evidence of dysmetria or ataxia Redemonstration of old infarct symptoms likely in the setting of current uncontrolled hyperglycemia (8) HTN (hypertension) (9) Non-compliance Assessment & Plan: HgBA1c 9.2 now with ongoing elevated glucose Noncompliance with diabetic meds at home (10) Acute encephalopathy Assessment & Plan: Redemonstration of old infarct symptoms likely in the setting of current uncontrolled hyperglycemia Status: Mala Zacarias N.P. Mar 01, 2019 23:32
--- NOTE | 2019-03-02 06:45 | Discharge Summary ---
DATE OF ADMISSION: 02/28/2019 DATE OF DISCHARGE: 03/01/2019 HOSPITAL COURSE: This is a 58-year-old female with past medical history significant for diabetes type 2, hypertension, morbid obesity, and dyslipidemia, who has presented to the hospital complaining about the left-sided headache. Shortly after initial evaluation, the patient was admitted to the hospital with left-sided headache and possible acute CVA. Throughout the hospital course, the patient was followed by Dr. Atkinson, Pulmonary Critical Care and Dr. Quincy Fox from Neurology and Dr. Luigi Sims from Cardiology and Dr. Field from Gastroenterology. The patient had an extensive workup done including CT scan of the head. It was essentially unremarkable and no acute finding. Parenchymal calcification likely on the basis of the old and negative for acute intracranial bleeding or mass effect. The patient had a CT of the cervical spine. It was essentially unremarkable. Duplex of the lower extremity was unremarkable for acute DVT. The patient is being discharged home today to be followed up as outpatient with the primary doctor at [facility]. FINAL DIAGNOSES: 1. Left-sided cephalgia, most likely tension headache. 2. Morbid obesity. 3. Shoulder pain. 4. Diabetes type 2. 5. Hypertension. 6. Dyslipidemia. MEDICATION AT DISCHARGE: Continue discharge medication list. ACTIVITY: As tolerated. DIET: An 1800-ADA cardiac diet. Quang Moncada M.D. DR: RITESH JOB#: [id number] CC:
--- NOTE | 2019-03-02 13:32 | Cardiology Report ---
APPROVED REPORT EXAM: Two-dimensional and M-mode echocardiogram with Doppler and color Doppler. INDICATION Left ventricular function M-Mode DIMENSIONS IVSd0.8 (0.7-1.1cm)Left Atrium (MM)3.9 (1.6-4.0cm) LVDd4.8 (3.5-5.6cm)Aortic Root3.0 (2.0-3.7cm) PWd1.2 (0.7-1.1cm)Aortic Cusp Exc.1.8 (1.5-2.0cm) LVDs3.7 (2.5-4.0cm) PWs1.5 cm Technically difficult study due to poor acoustic windows. Study quality precludes accurate assessment of regional wall motion. Normal left ventricular chamber size, systolic function and wall motion. Left ventricular ejection fraction estimated to be 55 %. Mild left ventricular hypertrophy. Anterior Echo-free space, may be due to pericardial fat or effusion. Mild right atrial enlargement. Left atrial size is within normal limits. Right ventricular chamber sizes is within normal limits. Focal aortic valve sclerosis with adequate cusp excursion. Thickened mitral valve leaflets with normal excursion. Mild mitral annulus and aortic root calcification. Pulmonic valve not well visualized. Normal tricuspid valve structure. IVC is normal in size with slight physiological collapse. A color flow and spectral Doppler study was performed and revealed: No aortic insufficiency. Trace mitral regurgitation. Mitral diastolic velocities suggest mild left ventricular diastolic dysfunction (Grade I). Trace tricuspid regurgitation. Tricuspid systolic velocities suggests peak right ventricular systolic pressure of 17 mmHg. No pulmonic regurgitation present.
--- NOTE | 2019-03-04 11:55 | Diagnostic Imaging Report ---
APPROVED REPORT CPT Code: 86326 Present Symptoms Comments: Pain BILATERAL: Imaging reveals a patent deep venous system bilaterally. There is no evidence of thrombus within the common femoral, superficial femoral, popliteal or tibial segments. The greater saphenous veins are within normal limits. Doppler indicates normal spontaneous flow within these segments.
--- NOTE | 2019-03-04 11:56 | Diagnostic Imaging Report ---
APPROVED REPORT CPT Code: 61446 Vascular Symptoms CVA/TIA: Comments: Left arm and neck pain CAROTID (BILATERAL) - Imaging reveals no significant plaque within the right and left extracranial carotid arteries. The Doppler spectral flow analysis is within normal limits throughout the extracranial carotid arteries bilaterally. VERTEBRAL/SUBCLAVIAN- The vertebral and subclavian arteries are within normal limits.
== END 2019-03-01 19:00 | disposition home or self-care (01) | DRG 54 ==
LOC: EMR 13:15 → 2E 13:57 → EDBEDREQ 14:36 → 2E 15:49
DX: G44.209 Tension-type headache, unspecified, not intractable (principal); G93.40 Encephalopathy, unspecified; E66.01 Morbid (severe) obesity due to excess calories; E11.65 Type 2 diabetes mellitus with hyperglycemia; I10 Essential (primary) hypertension; Z68.41 Body mass index [BMI] 40.0-44.9, adult; Z91.19 Patient's noncompliance with other medical treatment and regimen; Z79.2 Long term (current) use of antibiotics; Z79.84 Long term (current) use of oral hypoglycemic drugs; M25.512 Pain in left shoulder; E78.5 Hyperlipidemia, unspecified; M19.90 Unspecified osteoarthritis, unspecified site; K21.9 Gastro-esophageal reflux disease without esophagitis
CPT/HCPCS: 36415; 70450; 71045; 72125; 80053; 80061; 82140; 82962; 83036; 84439; 84443; 84484; 85025; 85610; 85730; 92610; 93005; 93306; 93880; 93970; 94664; 99285; J1815